=== PATIENT | female | born 1965 | race Caucasian/White ===

== ENCOUNTER 2017-07-29 19:04 | Emergency (ER) | payer OTHER ==
[2017-07-29 19:06] VITALS: BP 164/76; PULSE 89; RESP 20; TEMP 99.3; O2SAT 97
[2017-07-29] MEDS ORDERED: SODIUM CHLORIDE 0.9% FLUSH 10 ML FLUSH IVF PRN (19:30)
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
[2017-07-29 19:58] LABS: AUTOMATED NEUTROPHIL # 5.1 TH/MM3 (1.8-7.7); BASOPHIL # 0.1 TH/MM3 (0-0.2); BASOPHIL % 1.4 % (0.0-2.0); EOSINOPHIL # 0.1 TH/MM3 (0-0.4); EOSINOPHIL % 0.6 % (0.0-4.0); HEMATOCRIT 38.8 % (35.0-46.0); HEMOGLOBIN 12.9 GM/DL (11.6-15.3); LYMPH % 35.3 % (9.0-44.0); LYMPHOCYTE # 3.1 TH/MM3 (1.0-4.8); MEAN CELL VOLUME 83.3 FL (80.0-100.0); MEAN CORPUSCULAR HEMOGLOBIN 27.6 PG (27.0-34.0); MEAN CORPUSCULAR HGB CONC 33.2 % (32.0-36.0); MEAN PLATELET VOLUME 7.7 FL (7.0-11.0); MONO % 6.1 % (0.0-8.0); MONOCYTE # 0.5 TH/MM3 (0-0.9); NEUT % 56.6 % (16.0-70.0); PLATELET COUNT 276 TH/MM3 (150-450); RED BLOOD COUNT 4.66 MIL/MM3 (4.00-5.30); RED CELL DISTRIBUTION WIDTH 12.7 % (11.6-17.2); WHITE BLOOD COUNT 8.9 TH/MM3 (4.0-11.0)
[2017-07-29 20:05] VITALS: BP 130/80; PULSE 86; RESP 16; O2SAT 98
[2017-07-29 20:06] LABS: CHLORIDE 105 MEQ/L (98-107); SODIUM (NA) 140 MEQ/L (136-145)
[2017-07-29 20:09] LABS: CALCIUM 8.6 MG/DL (8.5-10.1)
[2017-07-29 20:09] LABS: BILIRUBIN, URINE NEG (NEG); GLUCOSE,URINE NEG (NEG); KETONE, URINE NEG (NEG); NITRITE,URINE NEG (NEG); URINE LEUKOCYTE ESTERASE LARGE (NEG)
[2017-07-29 20:10] LABS: ALBUMIN 4.2 GM/DL (3.4-5.0); BICARBONATE 26.1 MEQ/L (21.0-32.0); BLOOD UREA NITROGEN 16 MG/DL (7-18); GLUCOSE,RANDOM 94 MG/DL (74-106); MAGNESIUM 2.1 MG/DL (1.5-2.5)
[2017-07-29 20:12] LABS: BLOOD, URINE TRACE (NEG)
[2017-07-29 20:13] LABS: ALT (GPT) 65 U/L (10-53); AST (GOT) 79 U/L (15-37); CREATININE 0.78 MG/DL (0.50-1.00); GLOMERULAR FILTRATION RATE 77 ML/MIN (>89)
[2017-07-29 20:13] LABS: URINE COLOR YELLOW (YELLW/STRAW)
[2017-07-29 20:14] LABS: RBC, URINE 0-3 /hpf (0-3); SQUAMOUS EPITHELIAL CELL URINE 0-5 /hpf (0-5); WBC, URINE 0-2 /hpf (0-5)
[2017-07-29 20:14] LABS: TOTAL BILIRUBIN ADULT 0.6 MG/DL (0.2-1.0); TOTAL PROTEIN 7.7 GM/DL (6.4-8.2)
[2017-07-29 20:15] LABS: ALKALINE PHOSPHATASE 86 U/L (45-117)
[2017-07-29] MEDS ORDERED: HALOPERIDOL LACTATE 5 MG/ML AMP IM ONE (20:15)
[2017-07-29] MEDS ORDERED: LORazepam 2 MG/ML VIAL IV PUSH ONE (20:15)
[2017-07-29 21:27] LABS: ACETAMINOPHEN LESS THAN 2.0 MCG/ML (10.0-30.0)
--- NOTE | 2017-07-29 21:51 | RADRPT ---
EXAM DATE/TIME: 07/29/2017 21:21 [place] COMPARISON: No previous studies available for comparison. INDICATIONS : Bipolar patient having hallucinations. No known injury RADIATION DOSE: 58.91 CTDIvol (mGy) ; Patient motion MEDICAL HISTORY : Bipolar SURGICAL HISTORY : None. Right neck surgery ENCOUNTER: Initial ACUITY: 3 days PAIN SCALE: 10/10 LOCATION: Bilateral cranial TECHNIQUE: Multiple contiguous axial images were obtained of the head. Using automated exposure control and adj ustment of the mA and/or kV according to patient size, radiation dose was kept as low as reasonably a chievable to obtain optimal diagnostic quality images. DICOM format image data is available electro nically for review and comparison. FINDINGS: CEREBRUM: Bifrontal atrophy is noted. The ventricles are normal for age. No evidence of midline shift, mass le hammad, hemorrhage or acute infarction. No extra-axial fluid collections are seen. POSTERIOR FOSSA: The cerebellum and brainstem are intact. The 4th ventricle is midline. The cerebellopontine angle i s unremarkable. EXTRACRANIAL: The visualized portion of the orbits is intact. SKULL: The calvaria is intact. No evidence of skull fracture. CONCLUSION: 1. Bifrontal atrophy is noted. 2. No acute infarct, acute hemorrhage, mass effect or extra- axial fluid collections. Srini Arboleda MD on July 29, 2017 at 21:48 Board Certified Radiologist. This report was verified electronically.
[2017-07-29 22:45] VITALS: BP 116/79; PULSE 80; RESP 16; O2SAT 99
[2017-07-30 00:06] LABS: FREE T3 3.44 PG/ML (2.18-3.98); FREE T4 1.17 NG/DL (0.76-1.46)
[2017-07-30 03:02] VITALS: BP 118/65; PULSE 79; RESP 19
--- NOTE | 2017-07-30 12:45 | EKG ---
Date Performed: 07/29/2017 Time Performed: 21:38:21 PTAGE: 52 years EKG: Sinus rhythm WITH SINUS ARRHYTHMIA LOW QRS VOLTAGE IN PRECORDIAL LEADS BORDERLINE ECG NO PREVIOUS TRACING DOCTOR: Vivek Mejia Interpretating Date/Time 07/30/2017 12:44:40
[2017-07-30 14:05] VITALS: BP 117/71; PULSE 87; RESP 18
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
[2017-07-30] MEDS ORDERED: SERO100T PO (16:00)
--- NOTE | 2017-07-30 16:10 | PD ---
Physical Exam Date Seen by Provider: Jul 30, 2017 Time Seen by Provider: 16:08 Narrative Patient is previously cleared for psychiatric evaluation for what appear to be acute psychosis. Patient was then evaluated by psychiatric staff and felt to be appropriate for outpatient discharge. Patient continues to be medically stable at this time. Please see psychiatric note for follow-up plan. Data Data Last Documented VS Vital Signs Date Time Temp Pulse Resp B/P (MAP) Pulse Ox O2 Delivery O2 Flow Rate FiO2 07/30/17 14:05 87 18 117/71 (86) Room Air 07/29/17 22:45 99 07/29/17 19:06 99.3 Orders Orders Complete Blood Count With Diff (07/29/17 19:27) Comprehensive Metabolic Panel (07/29/17 19:27) Thyroid Stimulating Hormone (07/29/17 19:27) Urinalysis - C+S If Indicated (07/29/17 19:27) Oximetry (07/29/17 19:27) Iv Access Insert/Monitor (07/29/17 19:27) Ecg Monitoring (07/29/17 19:27) Psych Screen (07/29/17 19:27) Sodium Chloride 0.9% Flush (Ns Flush) (07/29/17 19:30) [place] (Li) (07/29/17 19:27) Blood Glucose (07/29/17 19:27) Drug Screen, Random Urine (07/29/17 19:27) Alcohol (Ethanol) (07/29/17 19:27) Salicylates (Aspirin) (07/29/17 19:27) Tylenol (Acetaminophen) (07/29/17 19:27) Ct Brain W/O Iv Contrast(Rout) (07/29/17 ) Magnesium (Mg) (07/29/17 19:27) Lorazepam Inj (Ativan Inj) (07/29/17 20:15) Haloperidol Inj (Haldol Inj) (07/29/17 20:15) Free Thyroxine (T4) (07/29/17 20:57) Free T3 (07/29/17 20:57) Diet Regular Basic (07/30/17 Breakfast) Electrocardiogram (07/29/17 21:38) Diet Regular Basic (07/30/17 Lunch) Diet Regular Basic (07/30/17 Dinner) Labs Laboratory Tests Test 07/29/17 19:40 07/29/17 19:50 White Blood Count 8.9 TH/MM3 Red Blood Count 4.66 MIL/MM3 Hemoglobin 12.9 GM/DL Hematocrit 38.8 % Mean Corpuscular Volume 83.3 FL Mean Corpuscular Hemoglobin 27.6 PG Mean Corpuscular Hemoglobin Concent 33.2 % Red Cell Distribution Width 12.7 % Platelet Count 276 TH/MM3 Mean Platelet Volume 7.7 FL Neutrophils (%) (Auto) 56.6 % Lymphocytes (%) (Auto) 35.3 % Monocytes (%) (Auto) 6.1 % Eosinophils (%) (Auto) 0.6 % Basophils (%) (Auto) 1.4 % Neutrophils # (Auto) 5.1 TH/MM3 Lymphocytes # (Auto) 3.1 TH/MM3 Monocytes # (Auto) 0.5 TH/MM3 Eosinophils # (Auto) 0.1 TH/MM3 Basophils # (Auto) 0.1 TH/MM3 CBC Comment DIFF FINAL Differential Comment Blood Urea Nitrogen 16 MG/DL Creatinine 0.78 MG/DL Random Glucose 94 MG/DL Total Protein 7.7 GM/DL Albumin 4.2 GM/DL Calcium Level 8.6 MG/DL Magnesium Level 2.1 MG/DL Alkaline Phosphatase 86 U/L Aspartate Amino Transf (AST/SGOT) 79 U/L Alanine Aminotransferase (ALT/SGPT) 65 U/L Total Bilirubin 0.6 MG/DL Sodium Level 140 MEQ/L Potassium Level 3.5 MEQ/L Chloride Level 105 MEQ/L Carbon Dioxide Level 26.1 MEQ/L Anion Gap 9 MEQ/L Estimat Glomerular Filtration Rate 77 ML/MIN Free Thyroxine 1.17 NG/DL Free Triiodothyronine (T3) pg/dL 3.44 PG/ML Thyroid Stimulating Hormone 3rd Gen 4.120 uIU/ML Salicylates Level LESS THAN 1.7 MG/DL Acetaminophen Level LESS THAN 2.0 MCG/ML [place] Level LESS THAN 0.1 MEQ/L Ethyl Alcohol Level LESS THAN 3 MG/DL Urine Color YELLOW Urine Turbidity CLEAR Urine pH 6.0 Urine Specific [place] 1.015 Urine Protein NEG mg/dL Urine Glucose (UA) NEG mg/dL Urine Ketones NEG mg/dL Urine Occult Blood TRACE Urine Nitrite NEG Urine Bilirubin NEG Urine Leukocyte Esterase LARGE Urine RBC 0-3 /hpf Urine WBC 0-2 /hpf Urine Squamous Epithelial Cells 0-5 /hpf Microscopic Urinalysis Comment CULT NOT INDICATED Urine Opiates Screen NEG Urine Barbiturates Screen NEG Urine Amphetamines Screen NEG Urine Benzodiazepines Screen NEG Urine Cocaine Screen NEG Urine Cannabinoids Screen NEG MDM Medical Record Reviewed: Yes Supervised Visit with ABDI: Yes Narrative Course Patient is previously cleared for psychiatric evaluation for what appear to be acute psychosis. Patient was then evaluated by psychiatric staff and felt to be appropriate for outpatient discharge. Patient continues to be medically stable at this time. Please see psychiatric note for follow-up plan. Diagnosis Primary Impression: Acute psychosis Additional Impression: Bipolar 1 disorder Patient Instructions: General Instructions Additional Instruction: Patient is previously cleared for psychiatric evaluation for what appear to be acute psychosis. Patient was then evaluated by psychiatric staff and felt to be appropriate for outpatient discharge. Patient continues to be medically stable at this time. Please see psychiatric note for follow-up plan. Scripts Quetiapine (Seroquel) 100 Mg Tab 100 MG PO HS for Anxiety and/or Insomnia, #30 TAB 0 Refills Prov: Heather Hightower [facility] 07/30/17 Disposition: 01 DISCHARGE HOME Condition: Jeremy Tom Jul 30, 2017 16:10
== END 2017-07-30 17:25 | disposition home or self-care (01) ==
LOC: PHED 19:04 → NEPJ 07-30 17:25
DX: F23 Brief psychotic disorder (principal); F31.9 Bipolar disorder, unspecified; S00.31XA Abrasion of nose, initial encounter; R94.31 Abnormal electrocardiogram [ECG] [EKG]; I49.8 Other specified cardiac arrhythmias; W25.XXXA Contact with sharp glass, initial encounter; Z88.2 Allergy status to sulfonamides; Z88.0 Allergy status to penicillin
CPT/HCPCS: 70450; 80053; 80178; 80307; 81001; 83735; 84439; 84443; 84481; 85025; 93005; 96372; 96374; 99284; J1630; J2060

== ENCOUNTER 2017-08-03 22:53 | Inpatient (IN) | payer OTHER, MEDICARE ==
[~2017-08-03] VITALS: Ht 162.6 cm; Wt 72.2 kg
[~2017-08-03 22:53] MED LIST: SERO100T PO
[2017-08-03 22:56] VITALS: BP 117/70; PULSE 83; RESP 16; TEMP 98.5; O2SAT 100
--- NOTE | 2017-08-03 23:35 | PD ---
HPI Chief Complaint: Psychiatric Symptoms Time Seen by Provider: 23:31 Travel History International Travel<30 days: No Contact w/Intl Traveler<30days: No Traveled to known affect area: No History of Present Illness HPI The patient was seen and examined in the presence of the nurse. This patient has history of bipolar disorder and was started on Seroquel 5 days ago when she was here for psychiatric evaluation. Her brings her in today reporting that he is concerned and wants a repeat psychiatric evaluation. He thinks in general she is improved from 5 days ago but made some statements today suggesting that she wanted to hurt herself. The patient denies that. Symptoms severity is moderate. He thinks she is somewhat improved on the Seroquel. She is worried about side effects it might be giving her. No alleviating factors. PFSH Past Medical History Bipolar Disorder: Yes Diminished Hearing: Yes (partial hearing right ear.) ?: Not : 3 Para: 2 Miscarriage: 1 Past Surgical History Neurologic Surgery: Yes (right neck surg.) Social History Alcohol Use: Yes (RARE) Tobacco Use: No Substance Use: No Allergies-Medications (Allergen,Severity, Reaction): Coded Allergies: Sulfa (Sulfonamide Antibiotics) (Verified Allergy, Severe, hives, 07/29/17) amoxicillin (Verified Allergy, Severe, hives, 07/29/17) clavulanic acid (Verified Allergy, Severe, hives, 07/29/17) Reported Meds & Prescriptions Reported Meds & Active Scripts Active Seroquel (Quetiapine Fumarate) 100 Mg Tab 100 Mg PO HS Review of Systems General / Constitutional: No: Fever Eyes: No: Visual changes HENT: No: Headaches Cardiovascular: No: Chest Pain or Discomfort Respiratory: No: Shortness of Breath Gastrointestinal: No: Abdominal Pain Genitourinary: No: Dysuria Musculoskeletal: No: Pain Skin: No Rash Neurologic: No: Weakness Psychiatric: Positive: Suicidal Ideations, Disorder of Thought, Mood Disorder Endocrine: No: Polydipsia Hematologic/Lymphatic: No: Easy Bruising Physical Exam Narrative GENERAL: Well-nourished, well-developed patient in no apparent distress. SKIN: Focused skin assessment reveals no rash and nodules. Skin is Warm and dry. HEAD: Atraumatic. Normocephalic. EYES: Pupils equal and round. No scleral icterus. No injection or drainage. ENT: No nasal bleeding or discharge. Mucous membranes pink and moist. NECK: Trachea midline. No JVD. CARDIOVASCULAR: Regular rate and rhythm. No murmur appreciated. RESPIRATORY: No accessory muscle use. Clear to auscultation. Breath sounds equal bilaterally. GASTROINTESTINAL: Abdomen soft, non-tender, nondistended. Hepatic and splenic margins not palpable. MUSCULOSKELETAL: No obvious deformities. No clubbing. No cyanosis. No edema. NEUROLOGICAL: Awake and alert. No obvious cranial nerve deficits. Motor grossly within normal limits. Normal speech. PSYCHIATRIC: Appropriate mood and affect; insight and judgment reduced Data Data Last Documented VS Vital Signs Date Time Temp Pulse Resp B/P (MAP) Pulse Ox O2 Delivery O2 Flow Rate FiO2 08/03/17 22:56 98.5 83 16 117/70 (86) 100 Room Air Orders Orders Psych Screen (08/03/17 23:32) [facility] Medical Decision Making Medical Screen Exam Complete: Yes Emergency Medical Condition: Yes Medical Record Reviewed: Yes Differential Diagnosis Bipolar exacerbation, medication side effect, psychosis Narrative Course I have reviewed the patient's electronic medical record. Reviewed her psychiatric evaluation from 5 days ago Patient had medical clearance workup just 5 days ago and does not need that repeated. She has no acute medical symptoms and has normal vital signs and a benign exam Ordered psychiatric evaluation which is recently came. She is medically clear Diagnosis Primary Impression: Acute psychosis Additional Impression: Bipolar 1 disorder Lc Gooden MD Aug 03, 2017 23:35
[2017-08-04 00:44] VITALS: BP 139/65; PULSE 79; RESP 16; O2SAT 100
[2017-08-04 02:12] VITALS: BP 135/92; PULSE 105; RESP 15; O2SAT 97
[2017-08-04] MEDS ORDERED: OLANZapine IM 10 MG VIAL IM ONE (02:45)
[2017-08-04] MEDS ORDERED: diphenhydrAMINE HCL 50 MG/ML VIAL IM ONE (02:45)
[2017-08-04 06:42] VITALS: BP 116/69; PULSE 100; RESP 16; TEMP 97.4; O2SAT 98
[2017-08-04] MEDS ORDERED: ACETAMINOPHEN 325 MG TAB PO PRN (09:00)
[2017-08-04] MEDS ORDERED: ALUMINUM/MAGNESIUM/SIMETH 30 ML CUP PO PRN (09:00)
[2017-08-04] MEDS ORDERED: MAGNESIUM HYDROXIDE SUSP 30 ML CUP PO PRN (09:00)
--- NOTE | 2017-08-04 09:07 | HHI.HP ---
Provisional Diagnosis Admission Date Aug 04, 2017 at 08:52 [place]. Bipolar disorder, mixed with psychotic features Certification of Person's Competence To Provide Express and Informed Consent I have personally examined Sandhya Chopra , a person being served at [facility] on, Aug 04, 2017 08:57. Express and informed consent means consent voluntarily given in writing, by a competent person, after sufficient explanation and disclosure of the subject matter involved to enable the person to make a knowing and willful decision without any element of force, fraud, deceit, duress, or other form of constraint or coercion. This person is 18 years of age or older, is not now known to be incompetent to consent to treatment with a guardian advocate, and does not have a health care surrogate or proxy currently making medical treatment decisions. I have found this person to be one of the following: [x] Competent to provide express and informed consent, as defined above, for voluntary admission to this facility and is competent to provide express and informed consent for treatment. He/she has the consistent capacity to make well reasoned, willful, and knowing decisions concerning his or her medical or mental health treatment. The person fully and consistently understands the purpose of the admission for examination/placement and is fully capable of personally exercising all rights assured [place] Incompetent to provide express and informed consent to voluntary admission, and this is incompetent to provide express and informed consent to treatment. The person must be transferred to involuntary status and a petition for a guardian advocate filed with the Circuit Court. [] Refusing to provide express and informed consent to voluntary admission but is competent to provide express and informed consent for treatment. The person must be discharged or transferred to involuntary status. Form shall be completed within 24 hours of a person's arrival at the receiving facility and filed in the clinical record of each person: 1. Admitted on a voluntary basis 2. Permitted to provide express and informed consent to his/her own treatment 3. Allowed to transfer from involuntary to voluntary status 4. Prior to permitting a person to consent to his or her own treatment after having been previously found incompetent to consent to treatment. History of Present Illness Capacity: Has Capacity HPI 52-year-old female presents voluntarily with recent and ongoing delusional thinking, paranoia, suicidal ideation and homicidal ideation. Patient has not been treated routinely for her bipolar disorder for many months. She has been living in this area for approximately 2 years and her former psychiatrist is in [facility]. She came to the emergency room approximately 5 days ago and was released to the 's care, per his request. However, at that time he had to prevent her from walking into traffic to kill herself. She was started on 100 mg of Seroquel and is currently stating the medicine is not helping. She admits to having both suicidal ideation and homicidal ideation at this time. She experiences racing and disorganized thoughts. She is irritable with labile affect and dysphoric mood. She is unable to contract for safety. She denies any problem with alcohol or drug abuse. Her toxicology screen is negative from July 29, 2017. She continues to be paranoid. She feels she cannot control her own behavior. Review of Systems Psychiatric: COMPLAINS OF: Anxiety, Mood changes, Agitation, Suicidal Ideation , Homicidal Ideation, Delusions Except as stated in HPI: all other systems reviewed are Neg Past Psych History Psychological trauma history Denied. Violence risk - others (6 mos) High. Violence risk - self (6 mos) High. Substance Abuse History Drugs/Alcohol past 12 months Denied Past Family Social History Coded Allergies: Sulfa (Sulfonamide Antibiotics) (Verified Allergy, Severe, hives, 07/29/17) amoxicillin (Verified Allergy, Severe, hives, 07/29/17) clavulanic acid (Verified Allergy, Severe, hives, 07/29/17) Active Scripts Quetiapine (Seroquel) 100 Mg Tab, 100 MG PO HS for Anxiety and/or Insomnia, #30 TAB 0 Refills Prov:Heather Hightower 07/30/17 Current Medications Medications (Trade) Dose Ordered Sig/Gerda Route Start Time Stop Time Status Last Admin (Ativan) 1 mg Q6H PRN PO 08/04/17 09:00 UNV (Tylenol) 650 mg Q4H PRN PO 08/04/17 09:00 (Milk Of Magnesia Liq) 30 ml DAILY PRN PO 08/04/17 09:00 (Mag-Al Plus Susp Liq) 30 ml Q6H PRN PO 08/04/17 09:00 (SEROquel) 100 mg HS PO 08/04/17 21:00 UNV Family Psych History Positive for mood and anxiety disorders. Social History Lives with of many years, in [place]. She is "retired" from multiple jobs with [employer], [employer], etc. she does not have a history of alcohol or substance abuse. She has grown children from a previous relationship but they live elsewhere. Her is apparently supportive. Patient's Strengths (min. 2) Verbal and has access to healthcare. Physical Exam GENERAL: SKIN: Warm and dry. HEAD: Normocephalic. EYES: No scleral icterus. No injection or drainage. NECK: Supple, trachea midline. No JVD or lymphadenopathy. CARDIOVASCULAR: Regular rate and rhythm without murmurs, gallops, or rubs. RESPIRATORY: Breath sounds equal bilaterally. No accessory muscle use. GASTROINTESTINAL: Abdomen soft, non-tender, nondistended. MUSCULOSKELETAL: No cyanosis, or edema. BACK: Nontender without obvious deformity. No CVA tenderness. Vital Signs Vital Signs Date Time Temp Pulse Resp B/P (MAP) Pulse Ox O2 Delivery O2 Flow Rate FiO2 08/04/17 06:42 97.4 100 16 116/69 (85) 98 Room Air Mental Status Examination Appearance: Appropriate Consciousness: Alert Orientation: x4 Motor Activity: Normal gait Speech: Unremarkable Language: Adequate Fund of Knowledge: Adequate Attention and Concentration: Inadequate Memory: Unremarkable Mood: Anxious, Irritable, Manic Affect: Irritable, Labile Thought Process & Associations: Intact Thought Content: Racing thoughts, Delusional Hallucination Type: None Delusion Type: None, Paranoid Suicidal Ideation: Yes Suicidal Plan: Yes Suicidal Intention: No Homicidal Ideation: Yes Homicidal Plan: No Homicidal Intention: No Insight: Adequate Judgment: Adequate Assessment & Plan Problem List: (1) Bipolar disorder, current episode mixed, severe, with psychotic features ICD Codes: F31.64 - Bipolar disorder, current episode mixed, severe, with psychotic features Assessment & Plan Estimated LOS: days. 52-year-old female with history of bipolar disorder, currently inadequately treated for her illness, presenting for the second time to this emergency room, and one week. Continues to have paranoid thoughts about other people and her . Continues to have both suicidal and homicidal thoughts. Recently prevented from walking into traffic as a suicide attempt. Patient unable to contract for safety and is felt to be at high risk for self-harm or harm to others. For this reason she is being admitted for further evaluation and treatment. This physician is continuing the patient's Seroquel at night to help with sleep but the dose is inadequate to treat her illness. Plan is to either augment or increase Seroquel to therapeutic levels. Additionally, this physician has ordered a CBC and comprehensive metabolic panel, to determine if any infectious process or metabolic process is causing or contributing to her mood instability and psychosis. Also ordered are thyroid stimulating hormone levels, vitamin B- 12 levels and vitamin D levels, to determine if deficiencies in these areas is causing or contributing to her mood instability and psychosis. This physician also ordered a EKG to determine the patient's cardiac conduction status, prior to significantly changing psychotropic medicines which might adversely affect the electrical system of her heart. This physician spoke with the patient's nurse, Rancho, regarding the patient's recent behavior. Case management will also be involved to assist with information gathering and disposition planning. Vivek Delgado MD Aug 04, 2017 09:07
[2017-08-04] MEDS ORDERED: HALOPERIDOL LACTATE 5 MG/ML AMP ONE (12:25)
[2017-08-04] MEDS ORDERED: LORazepam 2 MG/ML VIAL ONE (12:25)
[2017-08-04] MEDS ORDERED: HALOPERIDOL LACTATE 5 MG/ML AMP IM ONE (13:00)
[2017-08-04] MEDS ORDERED: [UNRECOGNIZED DRUG - REMARK] IM ONE (13:00)
[2017-08-04 13:13] VITALS: BP 131/98; PULSE 86; RESP 18; TEMP 97; O2SAT 97
[2017-08-04] MEDS: QUEtiapine FUMARATE 100 MG TAB PO SCH (21:00)
[2017-08-05] MEDS: LORazepam 1 MG TAB PO PRN (02:48)
[2017-08-05 05:00] VITALS: BP 118/69; PULSE 90; RESP 18; TEMP 98; O2SAT 98
[2017-08-05 07:27] LABS: AUTOMATED NEUTROPHIL # 3.9 TH/MM3 (1.8-7.7); BASOPHIL % 0.6 % (0.0-2.0); EOSINOPHIL # 0.1 TH/MM3 (0-0.4); HEMATOCRIT 39.3 % (35.0-46.0); HEMO FLAGS DIFF FINAL; LYMPH % 36.1 % (9.0-44.0); LYMPHOCYTE # 2.5 TH/MM3 (1.0-4.8); MEAN CELL VOLUME 85.4 FL (80.0-100.0); MEAN CORPUSCULAR HEMOGLOBIN 28.3 PG (27.0-34.0); MEAN CORPUSCULAR HGB CONC 33.2 % (32.0-36.0); MONO % 5.8 % (0.0-8.0); NEUT % 56.5 % (16.0-70.0); PLATELET COUNT 265 TH/MM3 (150-450); RED BLOOD COUNT 4.59 MIL/MM3 (4.00-5.30); RED CELL DISTRIBUTION WIDTH 13.5 % (11.6-17.2); WHITE BLOOD COUNT 6.8 TH/MM3 (4.0-11.0)
[2017-08-05 07:42] LABS: ANION GAP 4 MEQ/L (5-15); AST (GOT) 17 U/L (15-37); BLOOD UREA NITROGEN 12 MG/DL (7-18); CHLORIDE 105 MEQ/L (98-107); GLOMERULAR FILTRATION RATE 78 ML/MIN (>89); POTASSIUM 4.6 MEQ/L (3.5-5.1); SODIUM (NA) 140 MEQ/L (136-145)
[2017-08-05 08:41] LABS: ALKALINE PHOSPHATASE 86 U/L (45-117); ALT (GPT) 37 U/L (10-53); HDL CHOLESTEROL 54.4 MG/DL (40.0-60.0); LDL CHOLESTEROL 119 MG/DL (0-99); TOTAL BILIRUBIN ADULT 0.4 MG/DL (0.2-1.0)
--- NOTE | 2017-08-05 14:09 | HHI.PYPN ---
Subjective Remarks Patient seen in day room with floor staff, patient initially seen and admitted by Dr. Vivek Delgado his initial psych assessment reviewed and agreed with. I have completed the initial admitting psychiatric template orders. Patient does acknowledge being bipolar having some resistance to medications, at times complaining of side effects of any medication that I suggested. She has shown marked dangers behaviors both of vague homicidal and suicidal ideation my onto traffic supporting her risk. She is vague about voices at the present time. She is vague about taking her Seroquel though I feel this is because she is reluctant to come down from her manic status. Though she states she will attempt compliance. At this time refill she does meet criteria for involuntary psychiatric hospitalization thus I'll do first opinion requests a second opinion. I feel though she does have capacity at this time to sign for medications Review of Systems Except as stated in HPI: all other systems reviewed are Neg Mental Status Examination Appearance: Appropriate Consciousness: Alert Orientation: x4 Motor Activity: Normal gait Speech: Unremarkable Language: Adequate Fund of Knowledge: Adequate Attention and Concentration: Inadequate Memory: Unremarkable Mood: Anxious, Irritable, Manic Affect: Irritable, Labile, Other (increased range and intensity) Thought Process & Associations: Intact Thought Content: Racing thoughts, Delusional Hallucination Type: None Delusion Type: None, Paranoid Suicidal Ideation: Yes Suicidal Plan: Yes Suicidal Intention: No Homicidal Ideation: Yes Homicidal Plan: No Homicidal Intention: No Insight: Adequate Judgment: Adequate Results Labs Test 08/05/17 06:21 White Blood Count 6.8 TH/MM3 Red Blood Count 4.59 MIL/MM3 Hemoglobin 13.0 GM/DL Hematocrit 39.3 % Mean Corpuscular Volume 85.4 FL Mean Corpuscular Hemoglobin 28.3 PG Mean Corpuscular Hemoglobin Concent 33.2 % Red Cell Distribution Width 13.5 % Platelet Count 265 TH/MM3 Mean Platelet Volume 8.2 FL Neutrophils (%) (Auto) 56.5 % Lymphocytes (%) (Auto) 36.1 % Monocytes (%) (Auto) 5.8 % Eosinophils (%) (Auto) 1.0 % Basophils (%) (Auto) 0.6 % Neutrophils # (Auto) 3.9 TH/MM3 Lymphocytes # (Auto) 2.5 TH/MM3 Monocytes # (Auto) 0.4 TH/MM3 Eosinophils # (Auto) 0.1 TH/MM3 Basophils # (Auto) 0.0 TH/MM3 CBC Comment DIFF FINAL Differential Comment Blood Urea Nitrogen 12 MG/DL Creatinine 0.77 MG/DL Random Glucose 97 MG/DL Total Protein 7.5 GM/DL Albumin 3.9 GM/DL Calcium Level 9.3 MG/DL Alkaline Phosphatase 86 U/L Aspartate Amino Transf (AST/SGOT) 17 U/L Alanine Aminotransferase (ALT/SGPT) 37 U/L Total Bilirubin 0.4 MG/DL Sodium Level 140 MEQ/L Potassium Level 4.6 MEQ/L Chloride Level 105 MEQ/L Carbon Dioxide Level 31.0 MEQ/L Anion Gap 4 MEQ/L Estimat Glomerular Filtration Rate 78 ML/MIN Triglycerides Level 68 MG/DL Cholesterol Level 187 MG/DL LDL Cholesterol 119 MG/DL HDL Cholesterol 54.4 MG/DL Cholesterol/HDL Ratio 3.43 RATIO Vitamin B12 Level 647 PG/ML 25-Hydroxy Vitamin D Total 41.1 ng/ML Thyroid Stimulating Hormone 3rd Gen 2.440 uIU/ML Vitals/IOs Vital Signs Date Time Temp Pulse Resp B/P (MAP) Pulse Ox O2 Delivery O2 Flow Rate FiO2 08/05/17 05:00 98.0 90 18 118/69 (85) 98 08/04/17 06:42 Room Air Assessment & Plan Problem List: (1) Bipolar disorder, current episode mixed, severe, with psychotic features ICD Codes: F31.64 - Bipolar disorder, current episode mixed, severe, with psychotic features Assessment & Plan Estimated LOS: days patient remains manic with psychotic features. For now continue medications no change Justification for Cont. Inpt. At this time patient will decompensate the placed in a lower level of care Discharge Planning Consider return to family home Request HC Surrog/Guard Advoc?: No William Serna MD Aug 05, 2017 14:09
--- NOTE | 2017-08-05 14:56 | EKG ---
Date Performed: 08/05/2017 Time Performed: 13:38:06 PTAGE: 52 years EKG: Sinus rhythm NORMAL ECG PREVIOUS TRACING : 07/29/2017 21.38 No significant change from previous tracing noted. DOCTOR: Stephen Whitlock Interpretating Date/Time 08/05/2017 14:55:41
[2017-08-05 16:21] LABS: HEMOGLOBIN A1b 1.7 %; HEMOGLOBIN Ao 85.1 %; HEMOGLOBIN P3 3.8 %
[2017-08-05 17:42] VITALS: BP 137/71; PULSE 95; RESP 17; TEMP 98.3; O2SAT 98
[2017-08-05] MEDS: QUEtiapine FUMARATE 100 MG TAB PO SCH (21:43)
[2017-08-06] MEDS: LORazepam 1 MG TAB PO PRN (01:40)
[2017-08-06 05:41] VITALS: BP 106/58; PULSE 78; RESP 17; TEMP 97.3; O2SAT 97
--- NOTE | 2017-08-06 15:29 | HHI.PYPN ---
Subjective Remarks This is a request for second opinion. Patient was seen and case discussed with nursing. I agree with the contents of the admission note. Patient has very poor insight and denies any suicidal or homicidal [id number] life. Denies she has a mental illness. Peers angry at her family for "lying" and plans to divorce her . Apparently was walking around naked in her room last night. Mental Status Examination Appearance: Appropriate Consciousness: Alert Orientation: x4 Motor Activity: Normal gait Speech: Unremarkable Language: Adequate Fund of Knowledge: Adequate Attention and Concentration: Inadequate Memory: Unremarkable Mood: Anxious, Irritable, Manic Affect: Irritable, Labile, Other (increased range and intensity) Thought Process & Associations: Intact Thought Content: Racing thoughts, Delusional Hallucination Type: None Delusion Type: None, Paranoid Suicidal Ideation: No Suicidal Plan: No Suicidal Intention: No Homicidal Ideation: No Homicidal Plan: No Homicidal Intention: No Insight: Adequate Judgment: Adequate Results Vitals/IOs Vital Signs Date Time Temp Pulse Resp B/P (MAP) Pulse Ox O2 Delivery O2 Flow Rate FiO2 08/06/17 05:41 97.3 78 17 106/58 (74) 97 08/04/17 06:42 Room Air Intake and Output 08/06/17 08/06/17 08/07/17 08:00 16:00 00:00 Intake Total 360 ml Balance 360 ml Assessment & Plan Problem List: (1) Bipolar disorder, current episode mixed, severe, with psychotic features ICD Codes: F31.64 - Bipolar disorder, current episode mixed, severe, with psychotic features Assessment & Plan I agree with the first opinion to continue petition. Criteria include suicidal ideation before admission Justification for Cont. Inpt. Patient would decompensate in a less restrictive setting Request HC Surrog/Guard Advoc?: No Tyson Burr DO Aug 06, 2017 15:29
[2017-08-06 18:35] VITALS: BP 121/78; PULSE 97; RESP 18; TEMP 98.4; O2SAT 98
[2017-08-06] MEDS: QUEtiapine FUMARATE 100 MG TAB PO SCH (23:06)
[2017-08-07] MEDS: hydrOXYzine HCL 50 MG TAB PO PRN ×2 (00:20→21:17)
[2017-08-07] MEDS ORDERED: LORazepam 2 MG/ML VIAL ONE (02:25)
[2017-08-07] MEDS ORDERED: HALOPERIDOL LACTATE 5 MG/ML AMP IM ONE (02:30)
[2017-08-07] MEDS ORDERED: NON-FORMULARY DRUG IM ONE (02:30)
[2017-08-07 06:00] VITALS: BP 120/70; PULSE 80; RESP 17; TEMP 97.3; O2SAT 98
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
[2017-08-07 18:23] VITALS: BP 132/69; PULSE 95; RESP 18; TEMP 97.9; O2SAT 100
[2017-08-07] MEDS: QUEtiapine FUMARATE 100 MG TAB PO SCH (21:15)
[2017-08-08 06:03] VITALS: BP 137/73; PULSE 87; RESP 17; TEMP 98.3
--- NOTE | 2017-08-08 13:49 | PD.TTN ---
Patient Problems 1. Discharge planning 2. Medication compliance 3. Knowledge deficit 4. Lack of coping skills Progress Toward Goals Provider Present: Dr. Fei Serna Provider Input: 08/08/17 Patient arrived on 08/04/17 and will be seen again by Dr. Serna . Psychiatric Counselors Present: MARLENE Rodrigues Psych Therapist Input: 08/08/17 This patient is new to this counselor. Counselor will visit patient today for assessment. Group Spec/RT/OT/CAGE Present: MICHAEL Romero Group Spec/RT/OT/CAGE Input: 08/08/17 Patient has been attending group activities with good participation. Social with peers. Documentation Scribe: MARLENE Rodrigues Date Resolved: Aug 08, 2017 Leesa Holley Aug 08, 2017 13:49
[2017-08-08] MEDS ORDERED: HYDR50TA94 PO (14:20)
[2017-08-08] MEDS ORDERED: SERO50TA PO (14:20)
--- NOTE | 2017-08-08 14:26 | HHI.DS ---
Psychiatry Discharge Summary Inpatient Psychiatric care?: Yes Advance Directive: No Mental Health AdvanceDirective: No Health Care Proxy: No Admission Admission Date Aug 04, 2017 at 08:52 Admission Diagnosis: (1) Bipolar disorder, current episode mixed, severe, with psychotic features ICD Code: F31.64 - Bipolar disorder, current episode mixed, severe, with psychotic features Brief History 52-year-old female presents voluntarily with recent and ongoing delusional thinking, paranoia, suicidal ideation and homicidal ideation. Patient has not been treated routinely for her bipolar disorder for many months. She has been living in this area for approximately 2 years and her former psychiatrist is in [facility]. She came to the emergency room approximately 5 days ago and was released to the 's care, per his request. However, at that time he had to prevent her from walking into traffic to kill herself. She was started on 100 mg of Seroquel and is currently stating the medicine is not helping. She admits to having both suicidal ideation and homicidal ideation at this time. She experiences racing and disorganized thoughts. She is irritable with labile affect and dysphoric mood. She is unable to contract for safety. She denies any problem with alcohol or drug abuse. Her toxicology screen is negative from July 29, 2017. She continues to be paranoid. She feels she cannot control her own behavior. Tobacco Use In Past 30 Days: No Tobacco Past 30 Days Alcohol Use: Monthly or Less Hospital Course Patient's hospital course was uneventful, she show compliance with medications from day 1. Today patient states that she is sleeping better, she denies suicidality homicidality voices or visions. Her paranoia has diminished. There is still some mild pressure to her speech and treatment is somewhat elevated. She states she wishes to go home her 2 adult sons will be coming in town today. She is aware of her need to return to her family home. Though she states will be her present . In any event at the present time patient no longer meets criteria for involuntary psychiatric hospitalization thus I'll lift Lane act allow patient to be discharged today we'll prescribe her Seroquel 50 mg in the morning when 100 mg at bedtime no 1 month supply and also allow her hydroxyzine 50 mg every 6 hours when necessary anxiety with 10 tablets no refills. Patient requests a psychiatrist office were Czech spoken. We will the counselor arrange that through her insurance panel. Results Blood Pressure 137 / 73 Vital Signs Date Time Temp Pulse Resp B/P (MAP) Pulse Ox O2 Delivery O2 Flow Rate FiO2 08/08/17 06:03 98.3 87 17 137/73 (94) 08/07/17 18:23 100 Laboratory Results Test 08/05/17 06:21 Cholesterol Level 187 MG/DL (120-200) HDL Cholesterol 54.4 MG/DL (40.0-60.0) Hemoglobin A1c 5.7 % (4.3-6.0) LDL Cholesterol 119 MG/DL (0-99) Triglycerides Level 68 MG/DL (42-150) Summary of Procedures None done Pending results at discharge: No Medications # of Antipsychotic meds at D/C: 1 Approp Antipsych med options 1 - Minimum of three failed multiple trials of monotherapy. 2 - Documented plan to taper to monotherapy due to previous use of multiple meds OR cross-taper in progress at D/C. 3 - Documentation of augmentation of Clozapine. 4 - Justification other than those listed in allowable values 1-3, document here : Discharge Discharge Date: Aug 08, 2017 Discharge Diagnosis: (1) Bipolar disorder, current episode mixed, severe, with psychotic features Diagnosis: Principal ICD Code: F31.64 - Bipolar disorder, current episode mixed, severe, with psychotic features Pt Condition on Discharge: Stable Discharge Disposition: Discharge Home Discharge Instructions Diet Instructions: As Tolerated, No Restrictions Activities you can perform: Regular-No Restrictions Scheduled Appointment: follow-up clinician through patient's insurance plan, would prefer Czech speaking Discharge Time > 30 minutes Mental Status Examination Appearance: Appropriate Consciousness: Alert Orientation: x4 Motor Activity: Normal gait Speech: Unremarkable Language: Adequate Fund of Knowledge: Adequate Attention and Concentration: Inadequate Memory: Unremarkable Mood: Anxious, Irritable, Manic Affect: Irritable, Other (constricted) Thought Process & Associations: Intact Thought Content: Bizarre thinking, Delusional Hallucination Type: None Delusion Type: None, Paranoid Suicidal Ideation: No Suicidal Plan: No Suicidal Intention: No Homicidal Ideation: No Homicidal Plan: No Homicidal Intention: No Insight: Adequate Judgment: Adequate Discharge/Advance Care Plan Health Problems: (1) Bipolar disorder, current episode mixed, severe, with psychotic features Goals to promote your health * To prevent worsening of your condition and complications * To maintain your health at the optimal level Directions to meet your goals Take your medications as prescribed Follow your dietary instruction Follow activity as directed Keep your appointments as scheduled Take your immunizations and boosters as scheduled If your symptoms worsen call your PCP, if no PCP go to Urgent Care Center or Emergency Room For 14/03 questions related to your inpatient stay or results of tests pending at discharge, please contact Dr. William Serna at Smoking is Dangerous to Your Health. Avoid second hand smoking William Serna MD Aug 08, 2017 14:26
== END 2017-08-08 16:25 | disposition home or self-care (01) | DRG 885 ==
LOC: NEPJ 22:53 → NEDA 08-04 08:52 → H260 08-04 11:15
PROVIDERS: ADMIT Psychiatry & Neurology Psychiatry; ATTEND Psychiatry & Neurology Psychiatry
DX: F31.64 Bipolar disorder, current episode mixed, severe, with psychotic features (principal); R45.851 Suicidal ideations; R45.850 Homicidal ideations; H91.91 Unspecified hearing loss, right ear; Z88.1 Allergy status to other antibiotic agents; Z88.2 Allergy status to sulfonamides
CPT/HCPCS: 80053; 80061; 82306; 82607; 83036; 84443; 85025; 93005; 96372; J1200; J1630; J2060

== ENCOUNTER 2017-08-08 20:23 | Inpatient (IN) | payer OTHER, MEDICARE ==
[~2017-08-08] VITALS: Ht 162.6 cm; Wt 77.0 kg
[2017-08-08 02:15] VITALS: BP 104/60; PULSE 84; RESP 16; TEMP 98.1; O2SAT 97
[~2017-08-08 20:23] MED LIST changes: +HYDR50TA94 PO; +SERO50TA PO
[2017-08-08 20:24] VITALS: BP 134/94; PULSE 91; RESP 16; TEMP 98.9; O2SAT 97
[2017-08-08] MEDS ORDERED: QUEtiapine FUMARATE 100 MG TAB PO ONE (22:00)
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
[2017-08-08 22:53] VITALS: BP 129/69; PULSE 85; RESP 19; O2SAT 99
[2017-08-09] MEDS ORDERED: diphenhydrAMINE HCL 50 MG CAP PO PRN (00:30)
[2017-08-09] MEDS ORDERED: hydrOXYzine HCL 50 MG TAB PO PRN (00:30)
[2017-08-09] MEDS ORDERED: diphenhydrAMINE HCL 50 MG/ML VIAL - HS PRN IM (00:30)
[2017-08-09] MEDS ORDERED: MAGNESIUM HYDROXIDE SUSP 30 ML CUP PO PRN (00:30)
[2017-08-09] MEDS ORDERED: diphenhydrAMINE HCL 50 MG/ML VIAL IM PRN (00:30)
[2017-08-09 06:23] VITALS: BP 108/59; PULSE 91; RESP 16; TEMP 98; O2SAT 98
[2017-08-09] MEDS: NICOTINE 21 MG/24 HR PATCH T-DERMAL SCH (08:14)
[2017-08-09] MEDS: QUEtiapine FUMARATE 25 MG TAB PO SCH (08:14)
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
[2017-08-09] MEDS ORDERED: QUEtiapine FUMARATE 100 MG TAB PO SCH (21:00)
[2017-08-09] MEDS: REMOVE OLD NICOTINE PATCH T-DERMAL SCH (21:00)
[2017-08-10] MEDS: LORazepam 1 MG TAB PO PRN (00:10)
[2017-08-10] MEDS: ALUMINUM/MAGNESIUM/SIMETH 30 ML CUP PO PRN (05:54)
[2017-08-10 06:16] VITALS: BP 126/69; PULSE 87; RESP 17; TEMP 97.2; O2SAT 97
[2017-08-10] MEDS: NICOTINE 21 MG/24 HR PATCH T-DERMAL SCH (09:00)
[2017-08-10] MEDS: QUEtiapine FUMARATE 25 MG TAB PO SCH (10:14)
[2017-08-10] MEDS ORDERED: SERO50TA PO (11:32)
[2017-08-10] MEDS ORDERED: HYDR50TA94 PO (11:32)
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
[2017-08-10 12:28] LABS: HEMOGLOBIN A1C 5.7 % (4.3-6.0)
[2017-08-10 12:32] LABS: BICARBONATE 30.5 MEQ/L (21.0-32.0); BLOOD UREA NITROGEN 12 MG/DL (7-18); CALCIUM 8.4 MG/DL (8.5-10.1); CHLORIDE 101 MEQ/L (98-107); GLOMERULAR FILTRATION RATE 65 ML/MIN (>89); GLUCOSE,RANDOM 102 MG/DL (74-106); SODIUM (NA) 138 MEQ/L (136-145)
[2017-08-10 12:33] LABS: CHOLESTEROL 206 MG/DL (120-200)
[2017-08-10 12:38] LABS: CHOLESTEROL/ HDL RATIO 3.59 RATIO; HDL CHOLESTEROL 57.3 MG/DL (40.0-60.0); LDL CHOLESTEROL 114 MG/DL (0-99); TRIGLYCERIDES 173 MG/DL (42-150)
--- NOTE | 2017-08-10 13:44 | HHI.PYPN ---
Subjective Remarks After I dictated the discharge summary on this patient and discharge orders I continue to observe the patient. She developed increased manic behaviors including increased pressured speech intrusiveness into other patient's personal space attempting to do staff type behaviors with patient's, she was noted coming out of her room with a paper cup with water and it, she was brushing her teeth with toothpaste foam dribbling down her chin. She came up to be with her intense look on her face and asked me how I managed to get all her relatives onto the unit. At this time I feel patient has regressed and at this time is showing increased toy with psychotic features. At this time I feel she does meet criteria for further inpatient psychiatric hospitalization medication management and observation. Led to feel she is willing to sign voluntary and state of voluntary basis. Thus I'll cancel the discharge will continue her medications and other orders from this hospitalization newly change being I will increase her Seroquel to 100 mg twice a day Review of Systems Constitutional: DENIES: Diaphoretic episodes, Fatigue, Fever, Weight gain, Weight loss, Chills, Dizziness, Change in appetite, Night Sweats Endocrine: DENIES: Abnorml menstrual pattern, Heat/cold intolerance, Polydipsia , Polyuria, Polyphagia Eyes: DENIES: Blurred vision, Diplopia, Eye inflammation, Eye pain, Vision loss , Photosensitivity, Double Vision Ears, nose, mouth, throat: DENIES: Tinnitus, Hearing loss, Vertigo, Nasal discharge, Oral lesions, Throat pain, Hoarseness, Ear Pain, Running Nose, Epistaxis, Sinus Pain, Toothache, Odynophagia Respiratory: DENIES: Apneas, Cough, Snoring, Wheezing, Hemoptysis, Sputum production, Shortness of breath Cardiovascular: DENIES: Chest pain, Palpitations, Syncope, Dyspnea on Exertion , PND, Lower Extremity Edema, Orthopnea, Claudication Gastrointestinal: DENIES: Abdominal pain, Black stools, Bloody stools, Constipation, Diarrhea, Nausea, Vomiting, Difficulty Swallowing, Anorexia Genitourinary: DENIES: Abnormal vaginal bleeding, Dysmenorrhea, Dyspareunia, Sexual dysfunction, Urinary frequency, Urinary incontinence, Urgency, Hematuria , Dysuria, Nocturia, Vaginal discharge Musculoskeletal: DENIES: Joint pain, Muscle aches, Stiffness, Joint Swelling, Back pain, Neck pain Integumentary: DENIES: Abnormal pigmentation, Pruritus, Rash, Nail changes, Breast masses, Breast skin changes, Nipple discharge Hematologic/lymphatic: DENIES: Bruising, Lymphadenopathy Immunologic/allergic: DENIES: Eczema, Urticaria Neurologic: DENIES: Abnormal gait, Headache, Localized weakness, Paresthesias, Seizures, Speech Problems, Tremor, Poor Balance Psychiatric: DENIES: Anxiety, Confusion, Mood changes, Depression, Hallucinations, Agitation, Suicidal Ideation, Homicidal Ideation, Delusions Except as stated in HPI: all other systems reviewed are Neg Mental Status Examination Appearance: Appropriate Consciousness: Alert Orientation: x4 Motor Activity: Normal gait Speech: Pressured, Other (somewhat disorganized) Language: Adequate Fund of Knowledge: Adequate Attention and Concentration: Easily Distracted Memory: Unremarkable Mood: Manic Affect: Irritable, Other (increase range and intensity) Thought Process & Associations: Loose associations, Disorganized Thought Content: Bizarre thinking, Delusional Delusion Type: Bizarre, Paranoid Suicidal Ideation: No Suicidal Plan: No Suicidal Intention: No Homicidal Ideation: No Homicidal Plan: No Homicidal Intention: No Insight: Poor Judgment: Poor Results Labs Test 08/10/17 11:26 Blood Urea Nitrogen 12 MG/DL Creatinine 0.90 MG/DL Random Glucose 102 MG/DL Calcium Level 8.4 MG/DL Sodium Level 138 MEQ/L Potassium Level 4.1 MEQ/L Chloride Level 101 MEQ/L Carbon Dioxide Level 30.5 MEQ/L Anion Gap 7 MEQ/L Estimat Glomerular Filtration Rate 65 ML/MIN Hemoglobin A1c 5.7 % Triglycerides Level 173 MG/DL Cholesterol Level 206 MG/DL LDL Cholesterol 114 MG/DL HDL Cholesterol 57.3 MG/DL Cholesterol/HDL Ratio 3.59 RATIO Vitals/IOs Vital Signs Date Time Temp Pulse Resp B/P (MAP) Pulse Ox O2 Delivery O2 Flow Rate FiO2 08/10/17 06:16 97.2 87 17 126/69 (88) 97 08/08/17 22:53 Room Air Assessment & Plan Problem List: (1) Bipolar disorder, current episode mixed, severe, with psychotic features ICD Codes: F31.64 - Bipolar disorder, current episode mixed, severe, with psychotic features Status: Acute Assessment & Plan Estimated LOS: days patient remains manic with psychotic features, that escalated rapidly during the interval between my earlier discharging outpatient in the present time. This has led me to believe the patient is showing a marked regression with increased toy and psychosis. Thus the discharges canceled patient to continue her inpatient psychiatric hospitalization on a voluntary basis. Will be increase his Seroquel today to 100 mg twice a day Justification for Cont. Inpt. With this time patient will decompensate if placed in a lower level of care Discharge Planning At this point placement is an issue Request HC Surrog/Guard Advoc?: No William Serna MD Aug 10, 2017 13:44
[2017-08-10] MEDS: QUEtiapine FUMARATE 100 MG TAB PO SCH ×2 (14:00→20:32)
[2017-08-10 19:00] VITALS: BP 127/63; PULSE 86; RESP 18; TEMP 98.3; O2SAT 99
[2017-08-10] MEDS: LORazepam 2 MG/ML VIAL IM PRN (20:32)
[2017-08-10] MEDS: REMOVE OLD NICOTINE PATCH T-DERMAL SCH (21:00)
[2017-08-11 05:38] VITALS: BP 119/73; PULSE 95; RESP 18; TEMP 98; O2SAT 100
[2017-08-11] MEDS: NICOTINE 21 MG/24 HR PATCH T-DERMAL SCH (08:39)
[2017-08-11] MEDS: QUEtiapine FUMARATE 100 MG TAB PO SCH ×2 (08:39→20:22)
--- NOTE | 2017-08-11 11:00 | HHI.PYPN ---
Subjective Remarks Patient seen in day room with nurse Marycarmen, chart reviewed, patient compliant medication. Patient continues manic with rapid pressured speech hyperactivity intrusiveness. There are vague sexual overtones. After I finished speaking with patient she came up grab my left arm just my shoulder and told me that she loved me. I attempted to redirect her into more appropriate behaviors but she showed little insight into that. Will increase scheduled Seroquel to 200 mg twice a day Review of Systems Except as stated in HPI: all other systems reviewed are Neg Mental Status Examination Appearance: Appropriate Consciousness: Alert Orientation: x4 Motor Activity: Normal gait Speech: Pressured, Other (somewhat disorganized) Language: Adequate Fund of Knowledge: Adequate Attention and Concentration: Easily Distracted Memory: Unremarkable Mood: Manic Affect: Irritable, Other (increase range and intensity) Thought Process & Associations: Loose associations, Disorganized Thought Content: Bizarre thinking, Delusional Delusion Type: Bizarre, Paranoid Suicidal Ideation: No Suicidal Plan: No Suicidal Intention: No Homicidal Ideation: No Homicidal Plan: No Homicidal Intention: No Insight: Poor Judgment: Poor Results Labs Test 08/10/17 11:26 Blood Urea Nitrogen 12 MG/DL Creatinine 0.90 MG/DL Random Glucose 102 MG/DL Calcium Level 8.4 MG/DL Sodium Level 138 MEQ/L Potassium Level 4.1 MEQ/L Chloride Level 101 MEQ/L Carbon Dioxide Level 30.5 MEQ/L Anion Gap 7 MEQ/L Estimat Glomerular Filtration Rate 65 ML/MIN Hemoglobin A1c 5.7 % Triglycerides Level 173 MG/DL Cholesterol Level 206 MG/DL LDL Cholesterol 114 MG/DL HDL Cholesterol 57.3 MG/DL Cholesterol/HDL Ratio 3.59 RATIO Vitals/IOs Vital Signs Date Time Temp Pulse Resp B/P (MAP) Pulse Ox O2 Delivery O2 Flow Rate FiO2 08/11/17 05:38 98.0 95 18 119/73 (88) 100 08/08/17 22:53 Room Air Assessment & Plan Problem List: (1) Bipolar disorder, current episode mixed, severe, with psychotic features ICD Codes: F31.64 - Bipolar disorder, current episode mixed, severe, with psychotic features Status: Acute Assessment & Plan Estimated LOS: days patient continues manic intrusive hyperactive very poor boundaries. See medication adjustment above Justification for Cont. Inpt. With this time patient will decompensate the placed on the lower level of care Discharge Planning Possible discharge home when patient stabilizes Request HC Surrog/Guard Advoc?: No William Serna MD Aug 11, 2017 11:00
--- NOTE | 2017-08-11 14:36 | PD.TTN ---
Patient Problems 1. Discharge planning 2. Medication compliance 3. Knowledge deficit 4. Lack of coping skills Progress Toward Goals Provider Present: Dr. Fei Serna Provider Input: 08/10/17 Dr. Serna's treatment team met to discuss patient's treatment plan, medication, and discharge. Patient presents manic, with psychotic features. Patient's speech is pressured. Medications will be increased. Nurse(s) Input: 08/10/17 Patient's nurse Darby reports patient is intrusive, speech content is non senical related to her relatives. Patient is compliant with medication, denies suicidal and homicidal ideation. Psychiatric Counselors Present: MARTI GarciaRaul Psych Therapist Input: 08/10/17 Patient presents childlike, intrusive, has poor boundaries, grandiose, affect labile. patient presents with delusional content of people on the unit being her family members. This counselor is often informing patient who I am and my role here at the hospital due to patient thinking I am a family member. Patient is medication compliant Group Spec/RT/OT/CAGE Present: NILES Ocampo Group Spec/RT/OT/CAGE Input: 08/10/17 Patient attends most groups. Participates appropriately, delusional, internally stimulated. Stella RomeroRaul Aug 11, 2017 14:36
[2017-08-11 17:14] VITALS: BP 157/96; PULSE 110; RESP 18; TEMP 98.5; O2SAT 98
[2017-08-11] MEDS: LORazepam 1 MG TAB PO PRN (19:16)
[2017-08-11] MEDS: REMOVE OLD NICOTINE PATCH T-DERMAL SCH (20:24)
[2017-08-11] MEDS ORDERED: HALOPERIDOL LACTATE 5 MG/ML AMP ONE (20:59)
[2017-08-11] MEDS ORDERED: LORazepam 2 MG/ML VIAL IM SCH (21:00)
[2017-08-11] MEDS ORDERED: HALOPERIDOL LACTATE 5 MG/ML AMP IM SCH (21:00)
[2017-08-12 06:13] VITALS: BP 110/98; PULSE 88; RESP 17; TEMP 97.6; O2SAT 98
[2017-08-12] MEDS: QUEtiapine FUMARATE 100 MG TAB PO SCH ×2 (08:06→20:23)
[2017-08-12] MEDS: NICOTINE 21 MG/24 HR PATCH T-DERMAL SCH (08:06)
--- NOTE | 2017-08-12 13:03 | HHI.PYPN ---
Subjective Remarks Patient seen in day room with nurse Giulia, chart reviewed, patient compliant medication.. Patient continues markedly intrusive with rapid pressured speech. Grandiose with little insight into her issues. Is also some explosive paranoid last night getting a staff person as a book. Patient just had her Seroquel adjusted and increased. We'll continue monitoring Review of Systems Except as stated in HPI: all other systems reviewed are Neg Mental Status Examination Appearance: Appropriate Consciousness: Alert Orientation: x4 Motor Activity: Normal gait Speech: Pressured, Other (somewhat disorganized) Language: Adequate Fund of Knowledge: Adequate Attention and Concentration: Easily Distracted Memory: Unremarkable Mood: Manic Affect: Irritable, Other (increase range and intensity) Thought Process & Associations: Loose associations, Disorganized Thought Content: Bizarre thinking, Delusional Delusion Type: Bizarre, Paranoid Suicidal Ideation: No Suicidal Plan: No Suicidal Intention: No Homicidal Ideation: No Homicidal Plan: No Homicidal Intention: No Insight: Poor Judgment: Poor Results Vitals/IOs Vital Signs Date Time Temp Pulse Resp B/P (MAP) Pulse Ox O2 Delivery O2 Flow Rate FiO2 08/12/17 06:13 97.6 88 17 110/98 (102) 98 08/08/17 22:53 Room Air Assessment & Plan Problem List: (1) Bipolar disorder, current episode mixed, severe, with psychotic features ICD Codes: F31.64 - Bipolar disorder, current episode mixed, severe, with psychotic features Status: Acute Assessment & Plan Estimated LOS: days patient manic, psychotic, she is intrusive invasive labile and threatening. Compliant medication Justification for Cont. Inpt. If this time patient would decompensate the placed a lower level of care Discharge Planning Hopefully patient will be returned to her living situation home with her family Request HC Surrog/Guard Advoc?: No William Serna MD Aug 12, 2017 13:03
[2017-08-12 17:30] VITALS: BP 117/71; PULSE 109; RESP 18; TEMP 98.6; O2SAT 98
[2017-08-12] MEDS: REMOVE OLD NICOTINE PATCH T-DERMAL SCH (20:24)
[2017-08-13 06:29] VITALS: BP 144/71; PULSE 100; RESP 17; TEMP 97.6; O2SAT 100
[2017-08-13] MEDS: NICOTINE 21 MG/24 HR PATCH T-DERMAL SCH (08:44)
[2017-08-13] MEDS: QUEtiapine FUMARATE 100 MG TAB PO SCH ×2 (08:44→21:21)
--- NOTE | 2017-08-13 15:32 | HHI.PYPN ---
Subjective Remarks Patient was seen and case discussed with nursing. Patient remains floridly psychotic. She believes that various patients are related to her. She wrote a letter to was implying that members of her staff are part of [employer]. Compliant with medications. Insight remains quite poor Mental Status Examination Appearance: Appropriate Consciousness: Alert Orientation: x4 Motor Activity: Normal gait Speech: Pressured, Other (somewhat disorganized) Language: Adequate Fund of Knowledge: Adequate Attention and Concentration: Easily Distracted Memory: Unremarkable Mood: Manic Affect: Other (increase range and intensity) Thought Process & Associations: Disorganized, Other (flight of ideas) Thought Content: Bizarre thinking, Delusional Delusion Type: Bizarre, Paranoid Suicidal Ideation: No Suicidal Plan: No Suicidal Intention: No Homicidal Ideation: No Homicidal Plan: No Homicidal Intention: No Insight: Poor Judgment: Poor Results Vitals/IOs Vital Signs Date Time Temp Pulse Resp B/P (MAP) Pulse Ox O2 Delivery O2 Flow Rate FiO2 08/13/17 06:29 97.6 100 17 144/71 (95) 100 Assessment & Plan Problem List: (1) Bipolar disorder, current episode mixed, severe, with psychotic features ICD Codes: F31.64 - Bipolar disorder, current episode mixed, severe, with psychotic features Status: Acute Assessment & Plan Continue current treatment plan Justification for Cont. Inpt. Patient would decompensate in a less restrictive setting Request HC Surrog/Guard Advoc?: Tyson Larios DO Aug 13, 2017 15:32
[2017-08-13 17:39] VITALS: BP 130/79; PULSE 99; RESP 17; TEMP 98.6; O2SAT 99
[2017-08-13] MEDS: REMOVE OLD NICOTINE PATCH T-DERMAL SCH (21:00)
[2017-08-13] MEDS: diphenhydrAMINE HCL 50 MG CAP - HS PRN PO (21:21)
[2017-08-14] MEDS: LORazepam 2 MG/ML VIAL IM PRN (00:12)
[2017-08-14 05:43] VITALS: BP 110/58; PULSE 84; RESP 16; TEMP 98; O2SAT 96
[2017-08-14] MEDS: QUEtiapine FUMARATE 100 MG TAB PO SCH ×2 (08:37→20:05)
[2017-08-14] MEDS ORDERED: OLANZapine IM 10 MG VIAL IM STA (09:57)
--- NOTE | 2017-08-14 12:30 | HHI.PYPN ---
Subjective Remarks Patient remains floridly psychotic. She is oppositional today picking and choosing which medications to take. She was yelling this morning and after the interview started yelling loudly with what appeared to be Syriac slurs to the nursing station. She believes that nursing was trying to poison her last night. Mental Status Examination Appearance: Appropriate Consciousness: Alert Orientation: x4 Motor Activity: Normal gait Speech: Pressured, Other (somewhat disorganized) Language: Adequate Fund of Knowledge: Adequate Attention and Concentration: Easily Distracted Memory: Unremarkable Mood: Manic Affect: Other (increase range and intensity) Thought Process & Associations: Disorganized, Other (flight of ideas) Thought Content: Bizarre thinking, Delusional Delusion Type: Bizarre, Paranoid Suicidal Ideation: No Suicidal Plan: No Suicidal Intention: No Homicidal Ideation: No Homicidal Plan: No Homicidal Intention: No Insight: Poor Judgment: Poor Results Vitals/IOs Vital Signs Date Time Temp Pulse Resp B/P (MAP) Pulse Ox O2 Delivery O2 Flow Rate FiO2 08/14/17 05:43 98.0 84 16 110/58 (75) 96 Assessment & Plan Problem List: (1) Bipolar disorder, current episode mixed, severe, with psychotic features ICD Codes: F31.64 - Bipolar disorder, current episode mixed, severe, with psychotic features Status: Acute Assessment & Plan We'll increase Seroquel to 300 mg by mouth twice a day Justification for Cont. Inpt. Patient would decompensate in a less restrictive setting Request HC Surrog/Guard Advoc?: No Tyson Burr DO Aug 14, 2017 12:30
[2017-08-14 18:00] VITALS: BP 147/75; PULSE 105; RESP 16; TEMP 98.3; O2SAT 97
[2017-08-14] MEDS: LORazepam 1 MG TAB PO PRN (20:05)
[2017-08-15] MEDS: LORazepam 2 MG/ML VIAL IM PRN (00:48)
[2017-08-15] MEDS ORDERED: diphenhydrAMINE HCL 50 MG/ML VIAL ONE (00:58)
[2017-08-15] MEDS ORDERED: OLANZapine IM 10 MG VIAL IM SCH (01:00)
[2017-08-15] MEDS ORDERED: diphenhydrAMINE HCL 50 MG/ML VIAL IM SCH (01:00)
[2017-08-15 06:28] VITALS: BP 133/63; PULSE 84; RESP 16; TEMP 98; O2SAT 99
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
[2017-08-15] MEDS: DIVALPROEX SODIUM E.R. 500 MG TAB PO SCH (10:14)
[2017-08-15] MEDS: QUEtiapine FUMARATE 100 MG TAB PO SCH ×2 (10:14→21:00)
[2017-08-15] MEDS: ACETAMINOPHEN 325 MG TAB PO PRN (12:45)
[2017-08-15] MEDS: diphenhydrAMINE HCL 50 MG CAP - HS PRN PO (17:35)
[2017-08-15 18:07] VITALS: BP 133/75; PULSE 97; RESP 16; TEMP 97.7; O2SAT 99
[2017-08-15] MEDS: ALUMINUM/MAGNESIUM/SIMETH 30 ML CUP PO PRN (18:46)
[2017-08-15] MEDS: LORazepam 1 MG TAB PO PRN (21:00)
[2017-08-16 06:06] VITALS: BP 133/64; PULSE 96; RESP 18; TEMP 97.4; O2SAT 98
[2017-08-16] MEDS: DIVALPROEX SODIUM E.R. 500 MG TAB PO SCH (08:59)
[2017-08-16] MEDS: QUEtiapine FUMARATE 100 MG TAB PO SCH ×2 (08:59→21:00)
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
--- NOTE | 2017-08-16 10:43 | HHI.PYPN ---
Subjective Remarks Patient seen in her room with nurse Marcia, it is noted that patient has written all over her howard with [employer] call prescription letter is essentially unintelligible chart review patient compliant medications albeit reluctantly. Patient continues loud intrusive paranoid demanding and manipulative saying the only medicine she wants to take the medicines prescribed by her outpatient psychiatrist and that we should consult him. She then demanded discharge. I declined. She said she was voluntary. I said that was on her first admission but with this admission her behaviors so deteriorated that this time I feel she meets criteria for initiation of a Lane act thus I will be Lane acting patient today I'll do first opinion petition request second opinion also feel patient this time does not have capacity to make appropriate decisions concerning her treatment or her care thus will be asking for healthcare surrogate and guardian advocate. Patient stated the best medication that she has had that she is willing to take his Respinol. Though she has been reluctantly compliant with her Seroquel. At this time in hopes to gain some compliance we'll condense the at bedtime Seroquel to 600 mg and add Respinol M tab 3 mg twice a day. When I mentioned to the patient the change in status to Lane act she told me to go "F" myself and then fired me. Review of Systems Except as stated in HPI: all other systems reviewed are Neg Mental Status Examination Appearance: Appropriate Consciousness: Alert Orientation: x4 Motor Activity: Other (no motor abnormalities noted) Speech: Other (rambling) Language: Adequate Fund of Knowledge: Adequate Attention and Concentration: Easily Distracted Memory: Unremarkable Mood: Irritable, Manic Affect: Other (consistent with mood) Thought Process & Associations: Loose associations, Circumstantial Thought Content: Bizarre thinking, Delusional Hallucination Type: Other (says that staff are making her hallucinate) Delusion Type: Bizarre, Paranoid Suicidal Ideation: No Suicidal Plan: No Suicidal Intention: No Homicidal Ideation: No Homicidal Plan: No Homicidal Intention: No Insight: Poor Judgment: Poor Results Vitals/IOs Vital Signs Date Time Temp Pulse Resp B/P (MAP) Pulse Ox O2 Delivery O2 Flow Rate FiO2 08/16/17 06:06 97.4 96 18 133/64 (87) 98 Assessment & Plan Problem List: (1) Bipolar disorder, current episode mixed, severe, with psychotic features ICD Codes: F31.64 - Bipolar disorder, current episode mixed, severe, with psychotic features Status: Acute Assessment & Plan Estimated LOS: days at this time I feel patient behavior and mental status exam show that she does not have capacity to make appropriate decisions concerning her care and that she meets Lane act criteria. Thus I'll do first opinion petition supporting Lane act requests a second opinion. Also feels she does not have capacity to sign for medications I will ask for healthcare surrogate and a guardian advocate. An attempt to work with the patient and we' ll condense the Seroquel dosage to at bedtime and add Respinol 3 mg twice a day. Is also communication from the family that states patient may have done well on lithium in the past we'll consider that also Justification for Cont. Inpt. At this time patient will decompensate placed in a lower level of care Discharge Planning Potential to return home to family Request HC Surrog/Guard Advoc?: Yes William Serna MD Aug 16, 2017 10:43
[2017-08-16] MEDS: LORazepam 1 MG TAB PO PRN ×2 (11:06→21:00)
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
[2017-08-16] MEDS: risperiDONE ODT 3 MG TAB PO SCH (16:10)
[2017-08-16] MEDS: diphenhydrAMINE HCL 50 MG CAP - HS PRN PO (21:00)
[2017-08-17 05:44] VITALS: BP 107/70; PULSE 89; RESP 18; TEMP 97.1; O2SAT 99
[2017-08-17] MEDS: risperiDONE ODT 3 MG TAB PO SCH ×2 (08:00→16:00)
[2017-08-17] MEDS: DIVALPROEX SODIUM E.R. 500 MG TAB PO SCH (09:00)
--- NOTE | 2017-08-17 11:28 | HHI.PYPN ---
Subjective Remarks Patient seen in day room with nurse Karie, chart reviewed, patient compliant medications. Patient's range and intensity of her affect somewhat. Her speech is still somewhat pressured. She still is very poor personal boundaries. Though she is less angry with me today and seems somewhat more focused. She does denies suicidality today. Today she also requested that I be her outpatient physician I respectfully declined due to my role as a hospitalist. We will check patient's Depakote level tomorrow. Now continue treatment Review of Systems Except as stated in HPI: all other systems reviewed are Neg Mental Status Examination Appearance: Appropriate Consciousness: Alert Orientation: Person, Place (at least) Motor Activity: Other (no abnormal motor movements noted) Speech: Other (rambling) Language: Adequate Fund of Knowledge: Adequate Attention and Concentration: Easily Distracted Memory: Unremarkable Mood: Other (mildly dysphoric) Affect: Blunt Thought Process & Associations: Loose associations Thought Content: Bizarre thinking, Delusional Hallucination Type: Other (appears internally preoccupied) Delusion Type: Bizarre, Paranoid Suicidal Ideation: No Suicidal Plan: No Suicidal Intention: No Homicidal Ideation: No Homicidal Plan: No Homicidal Intention: No Insight: Poor Judgment: Poor Results Vitals/IOs Vital Signs Date Time Temp Pulse Resp B/P (MAP) Pulse Ox O2 Delivery O2 Flow Rate FiO2 08/17/17 05:44 97.1 89 18 107/70 (82) 99 Assessment & Plan Problem List: (1) Bipolar disorder, current episode mixed, severe, with psychotic features ICD Codes: F31.64 - Bipolar disorder, current episode mixed, severe, with psychotic features Status: Acute Assessment & Plan Estimated LOS: days patient's mean he appears to be somewhat softer. Her psychosis also seems to be somewhat softer. She is compliant with medications. Will check Depakote level over in a.m. Justification for Cont. Inpt. At this time patient will decompensate if placed in a lower level of care Discharge Planning Probable return home with family Request HC Surrog/Guard Advoc?: Yes William Serna MD Aug 17, 2017 11:28
[2017-08-17 16:31] VITALS: BP 110/59; PULSE 94; RESP 18; TEMP 97.8; O2SAT 98
[2017-08-17] MEDS: QUEtiapine FUMARATE 200 MG TAB PO SCH (20:28)
[2017-08-18] MEDS: diphenhydrAMINE HCL 50 MG CAP - HS PRN PO (01:10)
[2017-08-18 06:03] VITALS: BP 115/62; PULSE 99; RESP 17; TEMP 97.4; O2SAT 99
[2017-08-18] MEDS: risperiDONE ODT 3 MG TAB PO SCH ×2 (10:00→16:33)
[2017-08-18] MEDS: DIVALPROEX SODIUM E.R. 500 MG TAB PO SCH (10:00)
--- NOTE | 2017-08-18 12:15 | HHI.PYPN ---
Subjective Remarks Patient seen in [place] with nurse Roseanne, patient continues with a loud voice that is rapid and pressured, she continues with very poor boundaries coming very close to me when speaking to meet with intense eye contact. She showing some paranoia also associated with this and some referral to her with the. She states the only person she trusts is this Dr. Garcia may be from the [facility]. Depakote level drawn this a.m. is 88 on 1500 mg of Depakote daily. Will increase Depakote to 1600 mg daily check a blood level in 3 days Review of Systems Except as stated in HPI: all other systems reviewed are Neg Mental Status Examination Appearance: Appropriate Consciousness: Alert Orientation: Person, Place (at least) Motor Activity: Other (no abnormal motor movements noted) Speech: Other (rambling) Language: Adequate Fund of Knowledge: Adequate Attention and Concentration: Easily Distracted Memory: Unremarkable Mood: Other (mildly dysphoric) Affect: Blunt Thought Process & Associations: Loose associations Thought Content: Bizarre thinking, Delusional Hallucination Type: Other (appears internally preoccupied) Delusion Type: Bizarre, Paranoid Suicidal Ideation: No Suicidal Plan: No Suicidal Intention: No Homicidal Ideation: No Homicidal Plan: No Homicidal Intention: No Insight: Poor Judgment: Poor Results Labs Test 08/18/17 10:35 Ammonia 11 MCMOL/L Valproic Acid (Depakene) Level 88 MCG/ML Vitals/IOs Vital Signs Date Time Temp Pulse Resp B/P (MAP) Pulse Ox O2 Delivery O2 Flow Rate FiO2 08/18/17 06:03 97.4 99 17 115/62 (79) 99 Assessment & Plan Problem List: (1) Bipolar disorder, current episode mixed, severe, with psychotic features ICD Codes: F31.64 - Bipolar disorder, current episode mixed, severe, with psychotic features Status: Acute Assessment & Plan Estimated LOS: days patient continues manic somewhat psychotic, though it is slightly softer. She medication adjustment above Justification for Cont. Inpt. This time patient will decompensate if placed on lower level of care Discharge Planning Possible return home to family Request HC Surrog/Guard Advoc?: Yes William Serna MD Aug 18, 2017 12:15
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
[2017-08-18 17:21] VITALS: BP 126/60; PULSE 94; RESP 16; TEMP 98; O2SAT 100
[2017-08-18] MEDS: QUEtiapine FUMARATE 200 MG TAB PO SCH (20:41)
[2017-08-19 06:21] VITALS: BP 119/75; PULSE 92; RESP 17; TEMP 98
[2017-08-19] MEDS ORDERED: DIVALPROEX SODIUM E.R. 250 MG TAB PO SCH (09:00)
[2017-08-19] MEDS ORDERED: DIVALPROEX SODIUM E.R. 500 MG TAB PO SCH (09:00)
[2017-08-19] MEDS: risperiDONE ODT 3 MG TAB PO SCH ×2 (09:11→16:27)
--- NOTE | 2017-08-19 10:29 | HHI.PYPN ---
Subjective Remarks Patient seen in room with nurse Giulia, chart reviewed, patient compliant medications. Patient's mood continues to remain labile but the intensity has softened patient's paranoia and irritability has softened. However staff is noticed some mild increase in peripheral edema. The patient feels may be related to the increasing doses of Depakote. There is also no communication with patient's and her 2 adult sons. They all verify a history of good response to lithium with this patient. We discussed this again with the patient. Patient does not seem to be allergic to isolate, it appears that she may have had some motor behavior secondary to somewhat elevated lithium level. Patient is willing to have a trial of lithium on a slow titration. Thus we will start patient on lithium 150 mg twice a day for 3 days and check a blood level, we will same time titrate the Depakote or lower today to 1000 mg daily. With an extended across titration. Review of Systems Except as stated in HPI: all other systems reviewed are Neg Mental Status Examination Appearance: Appropriate Consciousness: Alert Orientation: Person, Place (at least) Motor Activity: Other (no abnormal motor movements noted) Speech: Other (rambling) Language: Adequate Fund of Knowledge: Adequate Attention and Concentration: Easily Distracted Memory: Unremarkable Mood: Other (mildly dysphoric) Affect: Blunt Thought Process & Associations: Loose associations Thought Content: Bizarre thinking, Delusional Hallucination Type: Other (appears internally preoccupied) Delusion Type: Bizarre, Paranoid Suicidal Ideation: No Suicidal Plan: No Suicidal Intention: No Homicidal Ideation: No Homicidal Plan: No Homicidal Intention: No Insight: Poor Judgment: Poor Results Labs Test 08/18/17 10:35 Ammonia 11 MCMOL/L Valproic Acid (Depakene) Level 88 MCG/ML Vitals/IOs Vital Signs Date Time Temp Pulse Resp B/P (MAP) Pulse Ox O2 Delivery O2 Flow Rate FiO2 08/19/17 06:21 98.0 92 17 119/75 (90) 08/18/17 17:21 100 Intake and Output 08/19/17 08/19/17 08/20/17 08:00 16:00 00:00 Intake Total 240 ml Balance 240 ml Assessment & Plan Problem List: (1) Bipolar disorder, current episode mixed, severe, with psychotic features ICD Codes: F31.64 - Bipolar disorder, current episode mixed, severe, with psychotic features Status: Acute Assessment & Plan Estimated LOS: days patient continues manic though there is some decrease in the range and intensity of of her affect is some mild increase focusing and processing also. See above for medication adjustments Justification for Cont. Inpt. This time patient will decompensate the placed in a lower level of care Discharge Planning Return home to family Request HC Surrog/Guard Advoc?: Yes William Serna MD Aug 19, 2017 10:29
[2017-08-19] MEDS ORDERED: PILL SPLITTER OTHER PRN (11:00)
[2017-08-19] MEDS: LITHIUM CARBONATE 300 MG TAB PO SCH ×2 (12:39→20:37)
[2017-08-19] MEDS: ALUMINUM/MAGNESIUM/SIMETH 30 ML CUP PO PRN (13:46)
[2017-08-19 18:02] VITALS: BP 123/67; PULSE 95; RESP 17; TEMP 96.7; O2SAT 99
[2017-08-19] MEDS: QUEtiapine FUMARATE 200 MG TAB PO SCH (20:38)
[2017-08-20 05:40] VITALS: BP 107/68; PULSE 95; RESP 18; TEMP 97.6; O2SAT 99
[2017-08-20] MEDS: ACETAMINOPHEN 325 MG TAB PO PRN (06:17)
[2017-08-20] MEDS: risperiDONE ODT 3 MG TAB PO SCH ×2 (08:05→15:24)
[2017-08-20] MEDS: LITHIUM CARBONATE 300 MG TAB PO SCH ×2 (08:06→21:45)
[2017-08-20] MEDS: ALUMINUM/MAGNESIUM/SIMETH 30 ML CUP PO PRN (08:33)
[2017-08-20] MEDS ORDERED: DIVALPROEX SODIUM E.R. 500 MG TAB PO SCH (09:00)
--- NOTE | 2017-08-20 13:13 | HHI.PYPN ---
Subjective Remarks Pt seen and discussed with staff. She is starting to improve with reduction in depakote and lithium trial. She is less intrusive and has had improvements in appetite and sleep today. No SI/HI. Mental Status Examination Appearance: Appropriate Consciousness: Alert Orientation: Person, Place (at least) Motor Activity: Other (no abnormal motor movements noted) Speech: Other (rambling) Language: Adequate Fund of Knowledge: Adequate Attention and Concentration: Easily Distracted Memory: Unremarkable Mood: Other (elevated) Affect: Other (expansive) Thought Process & Associations: Loose associations Thought Content: Bizarre thinking, Delusional Hallucination Type: Other (appears internally preoccupied) Delusion Type: Bizarre, Paranoid Suicidal Ideation: No Suicidal Plan: No Suicidal Intention: No Homicidal Ideation: No Homicidal Plan: No Homicidal Intention: No Insight: Poor Judgment: Poor Results Vitals/IOs Vital Signs Date Time Temp Pulse Resp B/P (MAP) Pulse Ox O2 Delivery O2 Flow Rate FiO2 08/20/17 05:40 97.6 95 18 107/68 (81) 99 Assessment & Plan Problem List: (1) Bipolar disorder, current episode mixed, severe, with psychotic features ICD Codes: F31.64 - Bipolar disorder, current episode mixed, severe, with psychotic features Status: Acute Assessment & Plan Continue current tx plan Estimated LOS: days Justification for Cont. Inpt. impairments in reality testing Request HC Surrog/Guard Advoc?: Yes Cammy Goode MD Aug 20, 2017 13:12
[2017-08-20] MEDS: QUEtiapine FUMARATE 200 MG TAB PO SCH (21:45)
[2017-08-21 05:46] VITALS: BP 128/62; PULSE 99; RESP 17; TEMP 97.4; O2SAT 96
[2017-08-21] MEDS: LITHIUM CARBONATE 300 MG TAB PO SCH ×2 (07:57→20:19)
[2017-08-21] MEDS: risperiDONE ODT 3 MG TAB PO SCH ×2 (07:57→15:30)
[2017-08-21] MEDS: ACETAMINOPHEN 325 MG TAB PO PRN (11:05)
--- NOTE | 2017-08-21 16:35 | HHI.PYPN ---
Subjective Remarks Pt seen and discussed with staff. She is less intrusive and more engaged in unit. She remains suspicious but has been compliant with care. She c/o of feelings of jaw tightening and muscle stiffness since risperdal increased to 3mg BID. Staff report that pt has also had peripheral edema and depakote was held (review of chart notes depakote was lowered due to peripheral edema).No SI/ HI Mental Status Examination Appearance: Appropriate Consciousness: Alert Orientation: Person, Place (at least) Motor Activity: Other (no abnormal motor movements noted) Speech: Other (rambling) Language: Adequate Fund of Knowledge: Adequate Attention and Concentration: Adequate Memory: Unremarkable Mood: Other (elevated) Affect: Other (expansive) Thought Process & Associations: Loose associations Thought Content: Delusional Hallucination Type: Other (appears internally preoccupied) Delusion Type: Paranoid Suicidal Ideation: No Suicidal Plan: No Suicidal Intention: No Homicidal Ideation: No Homicidal Plan: No Homicidal Intention: No Insight: Poor Judgment: Poor Results Vitals/IOs Vital Signs Date Time Temp Pulse Resp B/P (MAP) Pulse Ox O2 Delivery O2 Flow Rate FiO2 08/21/17 05:46 97.4 99 17 128/62 (84) 96 Assessment & Plan Problem List: (1) Bipolar disorder, current episode mixed, severe, with psychotic features ICD Codes: F31.64 - Bipolar disorder, current episode mixed, severe, with psychotic features Status: Acute Assessment & Plan Pt improving. Will provide cogentin for EPS and taper risperdal dose. Will stop depakote due to edema and as pt transitioning to lithium. [place] level has been ordered for in the morning. Continue with lithium titration. Estimated LOS: days Justification for Cont. Inpt. medication changes requiring monitoring. Request HC Surrog/Guard Advoc?: Yes Cammy Goode MD Aug 21, 2017 16:35
[2017-08-21] MEDS ORDERED: BENZTROPINE MESYLATE 1 MG TAB PO PRN (17:15)
[2017-08-21 17:50] VITALS: BP 104/60; PULSE 93; RESP 18; TEMP 98.7; O2SAT 98
[2017-08-21] MEDS: QUEtiapine FUMARATE 200 MG TAB PO SCH (20:19)
[2017-08-22 06:08] VITALS: BP 113/67; PULSE 98; RESP 17; TEMP 98.7; O2SAT 96
--- NOTE | 2017-08-22 08:47 | HHI.PYPN ---
Subjective Remarks Patient seen and examined in coverage for Dr. Serna with nurse, Giulia. Chart reviewed. Case discussed with nursing staff. Patient apparently experienced leg swelling over the weekend, thought to be due to Depakote which has been discontinued. Swelling is now improving. Nurse reports a good response to lithium. On my examination today, the patient is calm and pleasant. She is relevant in conversation. Her mood is "very good" and she reports that she slept well overnight. She reports that the swelling in her legs is decreasing and denies any side effects from medications presently. She does complain of some left hip pain radiating into the lateral aspect of her leg. No other physical complaints. Review of Systems Except as stated in HPI: all other systems reviewed are Neg Mental Status Examination Appearance: Appropriate Consciousness: Alert Orientation: Person, Place (at least) Motor Activity: Other (no hand tremor, no dystonia, no hypomimia, no dyskinesia noted.) Speech: Unremarkable Language: Adequate Fund of Knowledge: Adequate Attention and Concentration: Adequate Memory: Unremarkable Mood: Appropriate, Good Affect: Appropriate Thought Process & Associations: Intact, Logical, Linear Thought Content: Appropriate Hallucination Type: None, Other (appears internally preoccupied) Delusion Type: None Suicidal Ideation: No Suicidal Plan: No Suicidal Intention: No Homicidal Ideation: No Homicidal Plan: No Homicidal Intention: No Insight: Fair Judgment: Adequate (fair) Results Labs Labs reviewed. [place] level is in process Vitals/IOs Vital Signs Date Time Temp Pulse Resp B/P (MAP) Pulse Ox O2 Delivery O2 Flow Rate FiO2 08/22/17 06:08 98.7 98 17 113/67 (82 96 Assessment & Plan Problem List: (1) Bipolar disorder, current episode mixed, severe, with psychotic features ICD Codes: F31.64 - Bipolar disorder, current episode mixed, severe, with psychotic features Status: Acute Assessment & Plan Continue to hold Depakote. Follow-up lithium level and consider adjusting lithium dose to bring level within the therapeutic range. Consult hospitalist for left hip pain. Continue other medications and care as ordered. Justification for Cont. Inpt. Risk for decompensation and less restrictive environment Discharge Planning Per Dr. Serna Request HC Surrog/Guard Advoc?: Yes Pasha Lu MD Aug 22, 2017 08:47
[2017-08-22] MEDS ORDERED: DIVALPROEX SODIUM E.R. 500 MG TAB PO SCH (09:00)
[2017-08-22] MEDS: risperiDONE ODT 2 MG TAB PO SCH ×2 (09:14→15:55)
[2017-08-22] MEDS: LITHIUM CARBONATE 300 MG TAB PO SCH ×2 (09:14→20:54)
--- NOTE | 2017-08-22 11:53 | PD.CONS ---
HPI Service [facility] Hospitalists Consult Requested By Psychiatric services Reason for Consult Medical management, specifically left hip pain Primary Care Physician Unknown Diagnoses: History of Present Illness Written by Shira Camejo, acting as scribe for Dr. Sarbjit Velazquez on 08/22/17 at 11: 51. Physical a 52-year-old female with a past medical history significant for bipolar disorder, chronic headaches and neck pain status post fall injury resulting in a cervical fusion who has been admitted to the [facility] inpatient psychiatric unit for manic behavior, paranoia and delusional thinking who has been asked to be seen in consultation by hospitalist services for complaints of left hip pain. Patient seen and examined. 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 She denies any known injury to the left hip but does report that she sustained a bad fall down a flight of stairs several years ago causing injury to her neck which required a cervical fusion surgery. She denies ever having any imaging of the left hip. She denies any other acute medical complaints. Review of Systems Except as stated in HPI: all other systems reviewed are Neg Past Family Social History Allergies: Coded Allergies: Sulfa (Sulfonamide Antibiotics) (Verified Allergy, Severe, hives, 07/29/17) amoxicillin (Verified Allergy, Severe, hives, 07/29/17) clavulanic acid (Verified Allergy, Severe, hives, 07/29/17) Past Medical History Bipolar disorder Chronic headaches and neck pain Past Surgical History History of cervical ruptured disc status post fall injury requiring cervical fusion surgery Reported Medications Quetiapine (Seroquel) 50 Mg Tab, 50 MG PO DIRECTED for health, #90 TAB 0 Refills 1 in a.m. 2 at bedtime Hydroxyzine HCl (Hydroxyzine HCl) 50 Mg Tab, 50 MG PO Q6H Y for ANXIETY, #10 TAB 0 Refills Active Ordered Medications Current Medications Medications (Trade) Dose Ordered Sig/Gerda Route Start Time Stop Time Status Last Admin (Ativan) 1 mg Q6H PRN PO 08/09/17 00:30 08/16/17 21:00 (Ativan Inj) 1 mg Q6H PRN IM 08/09/17 00:30 08/15/17 00:48 (Atarax) 50 mg Q6H PRN PO 08/09/17 00:30 08/13/17 05:27 (Benadryl) 50 mg HS PRN PO 08/09/17 00:30 08/18/17 01:10 (Tylenol) 650 mg Q4H PRN PO 08/09/17 00:30 08/21/17 11:05 (Milk Of Magnesia Liq) 30 ml DAILY PRN PO 08/09/17 00:30 (Mag-Al Plus Susp Liq) 30 ml Q6H PRN PO 08/09/17 00:30 08/20/17 08:33 (SEROquel) 600 mg HS PO 08/17/17 21:00 08/21/17 20:19 (Lithotabs) 150 mg BID PO 08/19/17 11:00 08/22/17 09:14 (Pill Splitter) 1 ea UNSCH PRN OTHER 08/19/17 11:00 (Cogentin) 1 mg Q6H PRN PO 08/21/17 17:15 (risperDAL M-TAB) 2 mg BID@0800,1600 PO 08/22/17 08:00 08/22/17 09:14 Family History Maternal side, Alzheimer's and Parkinson's Paternal side, Bipolar disorder Social History Patient was born in [place]. She is unemployed and supported by [facility]. She currently lives with her in [place]. She denies any tobacco use. Physical Exam Vital Signs Vital Signs Date Time Temp Pulse Resp B/P (MAP) Pulse Ox O2 Delivery O2 Flow Rate FiO2 08/22/17 06:08 98.7 98 17 113/67 (82) 96 08/21/17 17:50 98.7 93 18 104/60 (75) 98 Physical Exam GENERAL: This is a well-nourished, well-developed patient, in no apparent distress. Awake and alert. Pleasant and calm. Witnessed ambulating in the unit without any difficulty. SKIN: No rashes, ecchymoses or lesions. Cool and dry. HEAD: Atraumatic. Normocephalic. No temporal or scalp tenderness. EYES: Pupils equal round and reactive. Extraocular motions intact. No scleral icterus. No injection or drainage. ENT: Nose without bleeding or purulent drainage. Throat without erythema, tonsillar hypertrophy or exudate. Uvula midline. Airway patent. NECK: Trachea midline. No lymphadenopathy. Supple, nontender, no meningeal signs. CARDIOVASCULAR: Regular rate and rhythm without murmurs, gallops, or rubs. RESPIRATORY: Clear to auscultation. Breath sounds equal bilaterally. No wheezes , rales, or rhonchi. GASTROINTESTINAL: Abdomen soft, non-tender, nondistended. No hepato-splenomegaly , or palpable masses. No guarding. MUSCULOSKELETAL: Extremities without clubbing, cyanosis, or edema. No joint tenderness, effusion, or edema noted. No calf tenderness. NEUROLOGICAL: Awake and alert. Motor and sensory grossly within normal limits. Five out of 5 muscle strength in all muscle groups. No focal neurologic finding appreciated. Normal speech. Laboratory Laboratory Tests Test 08/22/17 08:00 [place] Level 0.2 Assessment and Plan Assessment and Plan 52-year-old female with a past medical history significant for bipolar disorder , chronic headaches and neck pain status post fall injury resulting in a cervical fusion who has been admitted to the [facility] inpatient psychiatric unit for manic behavior, paranoia and delusional thinking who has been asked to be seen in consultation by hospitalist services for complaints of left hip pain. Bipolar disorder Psychosis - management per psychiatric team Left hip pain - suspect osteoarthritis - obtain xray of the left hip - trial of NSAIDS - monitor DVT prophylaxis - patient is ambulatory Thank you kindly for this consultation. We will gladly follow along with you. Discussed Condition With This note was transcribed by scribe [Shira Messer]. I, Dr. Roge Velazquez personally performed the history, physical exam, and medical decision making; and confirmed the accuracy of the information in the transcribed note. Authenticated by Dr. Roge Velazquez on 08/22/17 at 14:14. Shira Camejo Aug 22, 2017 11:53 Roge Velazquez MD Aug 22, 2017 14:15
[2017-08-22] MEDS ORDERED: NAPROXEN 500 MG TAB PO ONE (13:15)
--- NOTE | 2017-08-22 13:56 | RADRPT ---
EXAM DATE/TIME: 08/22/2017 13:34 [place] COMPARISON: No previous studies available for comparison. INDICATIONS : Left hip pain, no known injury. MEDICAL HISTORY : None. SURGICAL HISTORY : None. ENCOUNTER: Initial ACUITY: 4 - 6 months PAIN SCORE: 8/10 LOCATION: Left hip FINDINGS: Examination of the left hip was performed with AP Pelvis. The primary and secondary trabecular patte rn of the femoral neck is intact. The hip joint is of normal width without significant sclerosis or bony hypertrophy. The acetabulum is grossly intact. CONCLUSION: Unremarkable examination of the left hip. William Medellin MD on August 22, 2017 at 13:54 Board Certified Radiologist. This report was verified electronically.
[2017-08-22] MEDS: ACETAMINOPHEN 325 MG TAB PO PRN (15:56)
[2017-08-22 16:17] VITALS: BP 121/58; PULSE 97; RESP 18; TEMP 97.6; O2SAT 98
[2017-08-22] MEDS: NAPROXEN 500 MG TAB PO SCH (19:24)
[2017-08-22] MEDS: QUEtiapine FUMARATE 200 MG TAB PO SCH (20:55)
[2017-08-23 05:47] VITALS: BP 123/67; PULSE 84; RESP 18; TEMP 97.2; O2SAT 98
[2017-08-23] MEDS: risperiDONE ODT 2 MG TAB PO SCH ×2 (08:47→15:43)
[2017-08-23] MEDS: NAPROXEN 500 MG TAB PO SCH ×2 (08:47→21:10)
[2017-08-23] MEDS: LITHIUM CARBONATE 300 MG TAB PO SCH ×3 (08:49→21:10)
--- NOTE | 2017-08-23 11:08 | HHI.PR ---
Subjective Remarks Left hip pain improved with NSAIDs. No other complaints today. Imaging shows no severe arthritis. Objective Vital Signs Date Time Temp Pulse Resp B/P (MAP) Pulse Ox O2 Delivery O2 Flow Rate FiO2 08/23/17 05:47 97.2 84 18 123/67 (85) 98 08/22/17 16:32 18 08/22/17 16:17 97.6 97 18 121/58 (79) 98 Objective Remarks GENERAL: NAD, A&Ox3 HEAD: Normocephalic. NECK: Supple, trachea midline. No lymphadenopathy. EYES: No scleral icterus. No injection or drainage. CARDIOVASCULAR: Regular rate and rhythm without murmurs, gallops, or rubs. RESPIRATORY: Breath sounds equal bilaterally. No accessory muscle use. GASTROINTESTINAL: Abdomen soft, non-tender, nondistended. MUSCULOSKELETAL: No cyanosis, or edema. SKIN: Warm and dry. NEURO: No focal neurological deficitis. A/P Problem List: (1) Bipolar disorder, current episode mixed, severe, with psychotic features ICD Code: F31.64 - Bipolar disorder, current episode mixed, severe, with psychotic features Status: Acute (2) Bipolar 1 disorder ICD Code: F31.9 - Bipolar disorder, unspecified Status: Acute (3) Medical clearance for psychiatric admission ICD Code: Z00.8 - Encounter for other general examination Status: Acute (4) Acute psychosis ICD Code: F23 - Brief psychotic disorder Status: Acute Assessment and Plan 52-year-old female admitted secondary to psychosis with bipolar disorder. We are consulted based on hip pain. Bipolar disorder Psychosis Continue management per psychiatry team Left hip pain No significant osteoarthritis on imaging Continue NSAIDs as a temporary treatment No further plans changes to treatment No further monitoring needed Medical team will sign off at this time Medically clear for discharge from psychiatry clears patient. DVT prophylaxis Patient is ambulatory Roge Velazquez MD Aug 23, 2017 11:08
--- NOTE | 2017-08-23 12:12 | HHI.PYPN ---
Subjective Remarks Patient seen in [place] with nurse Darby, chart reviewed, patient showing mixed compliant medication. Progress notes of the weekend reviewed. Agree with discontinuation of Depakote and reduction in Respinol. Also agree with the increase in the lithium dosage. Discussed this with patient. There appears to be perhaps a component of manipulation on the patient's part since she tells me "I don't like to take medicine". Will continue the Respinol at the new dosage will continue the lithium no change check a lithium blood level on 08/25. She continues to denies suicidality homicidality. She continues to verify her desire to divorce her . However she showing little insight into an appropriate process to do this. Stating she wants her back to her place but wants us to take care of the problem with her living in the same residence as her . I suggested she needs a counselor for family meeting perhaps a pastoral person to discuss this with in the next 1-2 days while we are waiting for the medication level. Patient seemed willing to do this Review of Systems Except as stated in HPI: all other systems reviewed are Neg Mental Status Examination Appearance: Appropriate Consciousness: Alert Orientation: Person, Place (at least) Motor Activity: Other (no hand tremor, no dystonia, no hypomimia, no dyskinesia noted.) Speech: Unremarkable Language: Adequate Fund of Knowledge: Adequate Attention and Concentration: Adequate Memory: Unremarkable Mood: Appropriate, Good Affect: Appropriate Thought Process & Associations: Intact, Logical, Linear Thought Content: Appropriate Hallucination Type: None, Other (appears internally preoccupied) Delusion Type: None Suicidal Ideation: No Suicidal Plan: No Suicidal Intention: No Homicidal Ideation: No Homicidal Plan: No Homicidal Intention: No Insight: Fair Judgment: Adequate (fair) Results Vitals/IOs Vital Signs Date Time Temp Pulse Resp B/P (MAP) Pulse Ox O2 Delivery O2 Flow Rate FiO2 08/23/17 05:47 97.2 84 18 123/67 (85) 98 Assessment & Plan Problem List: (1) Bipolar disorder, current episode mixed, severe, with psychotic features ICD Codes: F31.64 - Bipolar disorder, current episode mixed, severe, with psychotic features Status: Acute Assessment & Plan Estimated LOS: days patient's Meany continues though somewhat softer. Still with little insight. Will continue medications with changes as mentioned above check a lithium blood level on 08/25 Justification for Cont. Inpt. At this time patient will decompensate the placed in a lower level of care Discharge Planning This needs to be determined. Patient should take some responsibility for discussing living arrangements with her family and her Request HC Surrog/Guard Advoc?: Yes William Serna MD Aug 23, 2017 12:12
[2017-08-23 16:56] VITALS: BP 101/55; PULSE 90; RESP 17; TEMP 98.3; O2SAT 99
[2017-08-23] MEDS: QUEtiapine FUMARATE 200 MG TAB PO SCH (21:09)
[2017-08-24 06:07] VITALS: BP 112/71; PULSE 88; RESP 16; TEMP 97.8; O2SAT 99
[2017-08-24] MEDS: NAPROXEN 500 MG TAB PO SCH ×2 (09:00→21:32)
[2017-08-24] MEDS: risperiDONE ODT 2 MG TAB PO SCH ×2 (09:02→15:47)
[2017-08-24] MEDS: LITHIUM CARBONATE 300 MG TAB PO SCH ×2 (09:02→21:31)
--- NOTE | 2017-08-24 12:37 | HHI.PYPN ---
Subjective Remarks Patient seen in her room nurse edward and counselor Leesa, chart review, patient compliant medications. Patient showing increased processing her mood is calmer her affect shows more appropriate range intensity. She is less intrusive. She denies suicidality homicidality voices or visions. Is now processing appropriately when she needs to do to get appropriate lodging not confront her . At this time patient no longer meets Lane criteria will lift Lane act allow patient to sign voluntary. We'll check patient lithium level tomorrow morning consider discharge 1124-48 hours Review of Systems Except as stated in HPI: all other systems reviewed are Neg Mental Status Examination Appearance: Appropriate Consciousness: Alert Orientation: Person, Place (at least) Motor Activity: Other (no hand tremor, no dystonia, no hypomimia, no dyskinesia noted.) Speech: Unremarkable Language: Adequate Fund of Knowledge: Adequate Attention and Concentration: Adequate Memory: Unremarkable Mood: Appropriate, Good Affect: Appropriate Thought Process & Associations: Intact, Logical, Linear Thought Content: Appropriate Hallucination Type: None, Other (appears internally preoccupied) Delusion Type: None Suicidal Ideation: No Suicidal Plan: No Suicidal Intention: No Homicidal Ideation: No Homicidal Plan: No Homicidal Intention: No Insight: Fair Judgment: Adequate (fair) Results Vitals/IOs Vital Signs Date Time Temp Pulse Resp B/P (MAP) Pulse Ox O2 Delivery O2 Flow Rate FiO2 08/24/17 06:07 97.8 88 16 112/71 (85) 99 Assessment & Plan Problem List: (1) Bipolar disorder, current episode mixed, severe, with psychotic features ICD Codes: F31.64 - Bipolar disorder, current episode mixed, severe, with psychotic features Status: Acute Assessment & Plan Estimated LOS: days patient showing some improvement in her mood and affect. Compliant medications. Also showing some good processing of issues related to her discharge and placement. Will lift Lane act. Check lithium level in a.m. Justification for Cont. Inpt. At this time patient will decompensate if not placed in an appropriate level of care Discharge Planning Probable discharge 24-48 hours Request HC Surrog/Guard Advoc?: Yes William Serna MD Aug 24, 2017 12:37
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
[2017-08-24] MEDS: ACETAMINOPHEN 325 MG TAB PO PRN (15:52)
[2017-08-24 17:00] VITALS: BP 116/77; PULSE 88; RESP 18; TEMP 98.3; O2SAT 99
[2017-08-24] MEDS: QUEtiapine FUMARATE 200 MG TAB PO SCH (21:31)
[2017-08-25 06:28] VITALS: BP 123/71; PULSE 90; RESP 16; TEMP 97.4; O2SAT 99
[2017-08-25] MEDS: LITHIUM CARBONATE 300 MG TAB PO SCH (08:05)
[2017-08-25] MEDS: NAPROXEN 500 MG TAB PO SCH (08:29)
[2017-08-25] MEDS: risperiDONE ODT 2 MG TAB PO SCH (08:30)
[2017-08-25] MEDS ORDERED: RISPM2 PO (11:54)
[2017-08-25] MEDS ORDERED: LITH300T3 PO (11:54)
[2017-08-25] MEDS ORDERED: SERO300T PO (11:54)
[2017-08-25] MEDS ORDERED: NAPR500 PO (11:54)
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
== END 2017-08-25 14:55 | disposition home or self-care (01) | DRG 885 ==
LOC: NEPJ 20:23 → NEDA 08-09 00:40 → H260 08-09 02:15 → H270 08-10 20:36 → H260 08-23 21:59
PROVIDERS: ADMIT Psychiatry & Neurology Psychiatry; ATTEND Psychiatry & Neurology Psychiatry
DX: F31.64 Bipolar disorder, current episode mixed, severe, with psychotic features (principal); H91.91 Unspecified hearing loss, right ear; M25.552 Pain in left hip; M54.2 Cervicalgia; R51 Headache; Z81.8 Family history of other mental and behavioral disorders
CPT/HCPCS: 73502; 80048; 80061; 80164; 80178; 82140; 83036; 99285; J1200; J1630; J2060; Q0163